=== PATIENT | male | born 1970 | race Caucasian/White ===

== ENCOUNTER 2018-11-12 10:00 | Inpatient (IN) | payer MEDICAID ==
[~2018-11-12] VITALS: Ht 185.4 cm; Wt 119.0 kg
[~2018-11-12 10:00] MED LIST: GABA600T13 PO; LANTUS SUBCUT
[2018-11-12] MEDS ORDERED: normal saline 1000ML IV soln IVB ONE (12:10)
[2018-11-12] MEDS ORDERED: HYDROcodone/acetaminophen 10/325mg tab PO ONE (13:05)
[2018-11-12 13:18] LABS: BASOPHILS % (AUTO) 0.5 % (0-1); EOSINOPHILS # (AUTO) 0.3 X10'3 (0-0.9); EOSINOPHILS % (AUTO) 3.2 % (0-6); HEMATOCRIT 31.2 % (42.0-52.0); HEMOGLOBIN 10.6 g/dl (14.0-17.9); LYMPHOCYTES # (AUTO) 1.8 X10'3 (1.1-4.8); LYMPHOCYTES % (AUTO) 20.8 % (21-51); MEAN CORPUSCULAR HEMOGLOBIN 30.9 PG (27.0-31.0); MEAN CORPUSCULAR HGB CONC 33.8 g/dL (33.0-36.5); MEAN CORPUSCULAR VOLUME 91.3 FL (78-98); MEAN PLATELET VOLUME 8.1 FL (7.4-10.4); MONOCYTES # (AUTO) 0.5 X10'3 (0-0.9); MONOCYTES % (AUTO) 5.4 % (2-12); NEUTROPHILS # (AUTO) 6.1 X10'3 (1.8-7.7); NEUTROPHILS % (AUTO) 70.1 % (42-75); PLATELET COUNT 342 X10'3 (140-440); RED BLOOD COUNT 3.42 X10'6 (4.70-6.10); RED CELL DISTRIBUTION WIDTH 15.8 % (11.5-14.5); WHITE BLOOD COUNT 8.7 X10'3 (4.5-11.0)
[2018-11-12 13:32] LABS: ALANINE AMINOTRANSFERASE 18 U/L (12-78); ALBUMIN 2.6 G/DL (3.4-5.0); ALBUMIN/GLOBULIN RATIO 0.5 (1.1-1.5); ALKALINE PHOSPHATASE 109 IU/L (46-116); ANION GAP 7 (8-16); ASPARTATE AMINO TRANSFERASE 13 U/L (10-37); BILIRUBIN,TOTAL 0.3 MG/DL (0.1-1.0); BLOOD UREA NITROGEN 22 MG/DL (7-18); BUN/CREATININE RATIO 18.3 (5.4-32.0); CALCIUM 8.4 MG/DL (8.5-10.1); CHLORIDE 97 MMOL/L (99-107); GLUCOSE 359 MG/DL (70-104); POTASSIUM 4.8 MMOL/L (3.5-5.1); SODIUM 131 MMOL/L (135-145); TOTAL CARBON DIOXIDE 27.2 MMOL/L (24-32); TOTAL PROTEIN 7.4 G/DL (6.4-8.2); eGFR 65 ML/MIN
[2018-11-12 13:36] LABS: CLARITY,URINE CLEAR (Clear); COLOR,URINE YELLOW (Yellow); GLUCOSE, URINE >=1000 mg/dl (Neg); KETONES,URINE NEGATIVE (Neg); LEUKOCYTE ESTERASE ,URINE NEGATIVE (Neg); NITRITES, URINE NEGATIVE (Neg); OCCULT BLOOD,URINE TRACE-LYSED (Neg); PROTEIN,URINE 100 mg/dl (Neg); UROBILINOGEN,URINE 0.2 E.U/dL (0.2-1.0)
[2018-11-12 13:41] LABS: UA COLLECTION TYPE CLN CATCH MIDSTREAM
[2018-11-12 13:43] LABS: HYALINE CASTS 0-3 /LPF (NEGATIVE); MUCUS STRANDS FEW /LPF (Neg); SQUAMOUS EPITHELIAL CELL,UR FEW /LPF (FEW)
[2018-11-12 13:44] LABS: BACTERIA,URINE FEW /HPF (Neg); WBC,URINE 0-4 /HPF (0-4)
[2018-11-12 13:45] LABS: SPERM FEW /HPF (NEGATIVE)
[2018-11-12 13:50] LABS: URINE AMPHETAMINE SCREEN NEGATIVE (Neg); URINE BARBITUATE SCREEN NEGATIVE (Neg); URINE BENZODIAZEPINES SCREEN NEGATIVE (Neg); URINE CANNABINOID SCREEN POSITIVE (Neg); URINE COCAINE SCREEN NEGATIVE (Neg); URINE METHADONE SCREEN NEGATIVE (Neg); URINE OPIATE SCREEN NEGATIVE (Neg); URINE PHENCYCLIDINE SCREEN NEGATIVE (Neg)
[2018-11-12] MEDS ORDERED: vancomycin inj 1,250 MG in normal saline 250ml IV soln 250 ML IV ONE (14:20)
[2018-11-12] MEDS ORDERED: CITA20TA2 PO (15:40)
[2018-11-12] MEDS ORDERED: LOSA25TA41 PO (15:40)
[2018-11-12] MEDS ORDERED: INSU100C10 SQ (15:40)
[2018-11-12] MEDS ORDERED: LURA20TA PO (15:40)
[2018-11-12] MEDS ORDERED: CARV6.252 PO (15:40)
[2018-11-12] MEDS ORDERED: OXYC-150 PO (15:40)
[2018-11-12] MEDS ORDERED: piperacillin/tazo 3.375gm/50ml 50 ML IV SCH (16:00)
[2018-11-12] MEDS ORDERED: potassium Cl 40MEQ/NS 500ml 500 ML IV PRN ×2 (16:25)
[2018-11-12] MEDS ORDERED: magnesium 4gm in 100ml NS 100 ML IV PRN (16:25)
[2018-11-12] MEDS ORDERED: acetaminophen 325mg tablet PO PRN ×2 (16:25)
[2018-11-12] MEDS ORDERED: glucagon, human recombinant 1mg kit SUBCUT PRN (16:25)
[2018-11-12] MEDS ORDERED: dextrose 50%-water 50ml dispensing syringe IV PRN ×2 (16:25)
[2018-11-12] MEDS ORDERED: mag hydrox/Alum hydrox/simeth 30ml oral suspension PO PRN (16:25)
[2018-11-12] MEDS ORDERED: ondansetron/PF 4mg/2ml inj IV PRN (16:25)
[2018-11-12] MEDS ORDERED: potassium Cl 20 mEq SR tablet PO PRN ×2 (16:25)
[2018-11-12] MEDS ORDERED: magnesium 2GM in 50ml NS 50 ML IV PRN (16:25)
[2018-11-12] MEDS ORDERED: magnesium Cl slow-release 64mg tablet PO PRN (16:25)
[2018-11-12] MEDS ORDERED: MESSAGE TO PHARMACY PO ONE (16:25)
[2018-11-12] MEDS ORDERED: dextrose ORAL solution 15 GM/59 ML bottle PO PRN (16:25)
[2018-11-12] MEDS ORDERED: magnesium hydroxide 30ml (MOM) UD suspension PO PRN (16:25)
[2018-11-12 17:00] LABS: HEMOGLOBIN A1C 10.7 % (4.5-6.2)
[2018-11-12] MEDS: carvedilol 6.25mg tablet PO SCH (19:23)
[2018-11-12] MEDS: insulin Lispro (HumaLOG) vial - multi-dose SQ SCH ×2 (19:26→21:17)
[2018-11-12] MEDS: normal saline 1000ml 1,000 ML IV SCH (20:55)
[2018-11-12] MEDS: gabapentin 300mg capsule PO SCH (21:04)
[2018-11-12] MEDS: losartan 25mg tablet PO SCH (21:05)
[2018-11-12] MEDS: HYDROcodone/acetaminophen 5mg/325mg tablet PO PRN (21:05)
[2018-11-12] MEDS: heparin, porcine 5000 units/ml vial SQ SCH (21:06)
[2018-11-12] MEDS: insulin glargine (Lantus) pen - multi-dose SQ SCH (21:17)
[2018-11-12 23:00] VITALS: BP 136/94
[2018-11-13] VITALS: BP 140/96
[2018-11-13] MEDS: normal saline 1000ml 1,000 ML IV SCH ×3 (02:23→23:09)
[2018-11-13] MEDS: HYDROcodone/acetaminophen 5mg/325mg tablet PO PRN ×5 (04:06→23:08)
[2018-11-13 05:50] LABS: BASOPHILS # (AUTO) 0.1 X10'3 (0-0.2); BASOPHILS % (AUTO) 1.3 % (0-1); EOSINOPHILS # (AUTO) 0.5 X10'3 (0-0.9); EOSINOPHILS % (AUTO) 8.2 % (0-6); HEMATOCRIT 29.7 % (42.0-52.0); LYMPHOCYTES % (AUTO) 35.5 % (21-51); MEAN CORPUSCULAR HEMOGLOBIN 30.9 PG (27.0-31.0); MEAN CORPUSCULAR HGB CONC 33.7 g/dL (33.0-36.5); MEAN CORPUSCULAR VOLUME 91.4 FL (78-98); MEAN PLATELET VOLUME 8.3 FL (7.4-10.4); MONOCYTES # (AUTO) 0.3 X10'3 (0-0.9); NEUTROPHILS # (AUTO) 2.7 X10'3 (1.8-7.7); PLATELET COUNT 287 X10'3 (140-440); RED BLOOD COUNT 3.25 X10'6 (4.70-6.10); RED CELL DISTRIBUTION WIDTH 15.3 % (11.5-14.5); WHITE BLOOD COUNT 5.6 X10'3 (4.5-11.0)
--- NOTE | 2018-11-13 06:00 | NUR ---
Problems reprioritized. Patient report given, questions answered & plan of care reviewed with Meenakshi VENTURA. Addendum: 11/13/18 at 0638 by Lucila Alvarez RN Amended: Links added.
--- NOTE | 2018-11-13 06:10 | NUR ---
Patient in room [facility]. I have received report from AUDREY Gaytan and had the opportunity to ask questions and assume patient care. Patient alert, oriented and in no apparent distress on room air. Patient sitting up in bed on laptop. Call light and items of frequent use in reach of patient
[2018-11-13 06:13] LABS: ALANINE AMINOTRANSFERASE 17 U/L (12-78); ALBUMIN 2.2 G/DL (3.4-5.0); ALBUMIN/GLOBULIN RATIO 0.5 (1.1-1.5); ALKALINE PHOSPHATASE 83 IU/L (46-116); ANION GAP 7 (8-16); ASPARTATE AMINO TRANSFERASE 18 U/L (10-37); BILIRUBIN,TOTAL 0.2 MG/DL (0.1-1.0); BLOOD UREA NITROGEN 14 MG/DL (7-18); CALCIUM 8.2 MG/DL (8.5-10.1); CHLORIDE 99 MMOL/L (99-107); GLUCOSE 323 MG/DL (70-104); MAGNESIUM 1.7 MG/DL (1.5-2.4); SODIUM 133 MMOL/L (135-145); TOTAL CARBON DIOXIDE 26.7 MMOL/L (24-32); TOTAL PROTEIN 6.5 G/DL (6.4-8.2); eGFR 80 ML/MIN
[2018-11-13 06:14] LABS: POTASSIUM 4.5 MMOL/L (3.5-5.1)
[2018-11-13 07:00] VITALS: BP 171/115
[2018-11-13] MEDS: K and/or MAG REPLACEMENT MC SCH (07:10)
[2018-11-13] MEDS: citalopram 20mg tablet PO SCH (07:35)
[2018-11-13] MEDS: carvedilol 6.25mg tablet PO SCH ×2 (07:36→21:46)
[2018-11-13] MEDS: gabapentin 300mg capsule PO SCH ×3 (07:37→21:37)
[2018-11-13] MEDS: heparin, porcine 5000 units/ml vial SQ SCH ×2 (07:37→21:38)
[2018-11-13] MEDS: lurasidone 20mg tablet PO SCH (07:43)
[2018-11-13] MEDS: insulin Lispro (HumaLOG) vial - multi-dose SQ SCH ×3 (09:04→19:20)
[2018-11-13 11:00] VITALS: BP 159/97
--- NOTE | 2018-11-13 12:21 | NUR ---
Patient SL for MRI. Patient taken to MRI via wheelchair with x1 staff. Tele monitor removed and placed bedside. Tele chambers notified.
[2018-11-13] MEDS ORDERED: gadopentetate dimeglumine 7.5 MMOL/15 ML syringe ONE ×2 (12:32→12:33)
--- NOTE | 2018-11-13 13:15 | NUR ---
Patient returned from MRI via wheelchair with x1 staff. Patient alert, oriented and in no apparent distress at this time. IV fluids resumed. Tele monitor reconnected to patient. Will assess blood sugar before giving patient lunch tray.
--- NOTE | 2018-11-13 16:35 | NUR ---
DM/wound consult: Patient's A1C is 10.7 with h/o type 2 DM; patient had recent tarsometatarsal amputation on right foot on 10/27/18. Per H&P patient had stopped attending wound care and was "fired" d/t not making his appointments. He has a good appetite, eating 100% of carb controlled diet. Patient needs written DM education handout with verbal review and written high protein education handout with verbal review r/t wound heal. He was seen at bedside but was snoring heavily and would not wake from his sleep even after his name was called three times. Will visit tomorrow for his education. Needs education of effects of high blood sugars and wound healing capabilities Recommend: 1. Continue carb controlled diet 2. Monitor need for additional protein 3. Weight per rx Addendum: 11/13/18 at [address] Amended: Links added.
--- NOTE | 2018-11-13 18:46 | NUR ---
Problems reprioritized. Patient report given, questions answered & plan of care reviewed with AUDREY Gaytan.
[2018-11-13 19:00] VITALS: BP 148/97
[2018-11-13] MEDS: losartan 25mg tablet PO SCH (21:43)
[2018-11-13] MEDS: insulin glargine (Lantus) pen - multi-dose SQ SCH (21:54)
[2018-11-13] MEDS ORDERED: VANCOMYCIN LEVEL IV ONE (22:30)
--- NOTE | 2018-11-13 22:45 | NUR ---
Lab called Vanco trough 22.1. Delores stopped. pharmacy notified as they are adjusting the dose. Addendum: 11/14/18 at 0459 by Lucila Alvarez RN Amended: Links added.
[2018-11-14] VITALS: BP 155/105
[2018-11-14 01:20] VITALS: BP 148/91
[2018-11-14] MEDS: normal saline 1000ml 1,000 ML IV SCH ×2 (04:44→22:00)
[2018-11-14] MEDS: HYDROcodone/acetaminophen 5mg/325mg tablet PO PRN ×4 (04:44→19:40)
--- NOTE | 2018-11-14 06:43 | NUR ---
Patient in room [facility]. I have received report from AUDREY Gaytan and had the opportunity to ask questions and assume patient care. Patient resting comfortably at this time. Call light and items of frequent use in reach of patient.
[2018-11-14 07:11] LABS: BASOPHILS # (AUTO) 0.1 X10'3 (0-0.2); BASOPHILS % (AUTO) 1.1 % (0-1); EOSINOPHILS # (AUTO) 0.5 X10'3 (0-0.9); EOSINOPHILS % (AUTO) 8.2 % (0-6); HEMOGLOBIN 10.5 g/dl (14.0-17.9); LYMPHOCYTES # (AUTO) 1.9 X10'3 (1.1-4.8); LYMPHOCYTES % (AUTO) 31.9 % (21-51); MEAN CORPUSCULAR HEMOGLOBIN 30.5 PG (27.0-31.0); MEAN CORPUSCULAR HGB CONC 32.9 g/dL (33.0-36.5); MEAN CORPUSCULAR VOLUME 92.5 FL (78-98); MEAN PLATELET VOLUME 8.4 FL (7.4-10.4); MONOCYTES # (AUTO) 0.3 X10'3 (0-0.9); MONOCYTES % (AUTO) 4.2 % (2-12); NEUTROPHILS # (AUTO) 3.3 X10'3 (1.8-7.7); NEUTROPHILS % (AUTO) 54.6 % (42-75); PLATELET COUNT 320 X10'3 (140-440); RED BLOOD COUNT 3.46 X10'6 (4.70-6.10); RED CELL DISTRIBUTION WIDTH 15.5 % (11.5-14.5)
[2018-11-14 07:30] LABS: ALANINE AMINOTRANSFERASE 16 U/L (12-78); ALBUMIN 2.4 G/DL (3.4-5.0); ALBUMIN/GLOBULIN RATIO 0.5 (1.1-1.5); ALKALINE PHOSPHATASE 82 IU/L (46-116); ANION GAP 8 (8-16); ASPARTATE AMINO TRANSFERASE 13 U/L (10-37); BILIRUBIN,TOTAL 0.2 MG/DL (0.1-1.0); BLOOD UREA NITROGEN 10 MG/DL (7-18); BUN/CREATININE RATIO 12.7 (5.4-32.0); CALCIUM 8.6 MG/DL (8.5-10.1); CHLORIDE 99 MMOL/L (99-107); CREATININE 0.79 MG/DL (0.60-1.10); GLUCOSE 248 MG/DL (70-104); MAGNESIUM 1.8 MG/DL (1.5-2.4); POTASSIUM 4.3 MMOL/L (3.5-5.1); SODIUM 134 MMOL/L (135-145); TOTAL CARBON DIOXIDE 26.9 MMOL/L (24-32); TOTAL PROTEIN 6.9 G/DL (6.4-8.2); eGFR > 90 ML/MIN
[2018-11-14 07:47] VITALS: BP 144/99
[2018-11-14] MEDS: K and/or MAG REPLACEMENT MC SCH (08:00)
[2018-11-14] MEDS: carvedilol 6.25mg tablet PO SCH ×2 (09:37→20:01)
[2018-11-14] MEDS: citalopram 20mg tablet PO SCH (09:37)
[2018-11-14] MEDS: lurasidone 20mg tablet PO SCH (09:38)
[2018-11-14] MEDS: HYDROchlorothiazide 12.5mg capsule PO SCH (09:38)
[2018-11-14] MEDS: gabapentin 300mg capsule PO SCH ×3 (09:39→20:31)
[2018-11-14] MEDS: heparin, porcine 5000 units/ml vial SQ SCH ×2 (09:39→20:01)
[2018-11-14] MEDS: nicotine 14mg patch - 24hr TD SCH (09:40)
[2018-11-14] MEDS: Dakins solution (1/4 strength) 473ml solution TP SCH (09:41)
[2018-11-14] MEDS: insulin Lispro (HumaLOG) vial - multi-dose SQ SCH ×3 (09:44→18:53)
[2018-11-14] MEDS: vancomycin inj 1,250 MG in normal saline 250ml IV soln 250 ML IV SCH ×3 (09:47→23:57)
[2018-11-14 11:39] VITALS: BP_SYST 160; BP_SYST 164; BP_DIAS 108; BP_DIAS 116
--- NOTE | 2018-11-14 14:54 | NUR ---
Wound care provided to right foot. Dakins solution applied and a wet-dry dressing was provided. Patient tolerated well and stated pain at a 5/10 and tolerated well. Wound had purulent drainage at time of dressing change. Will continue to monitor patient.
--- NOTE | 2018-11-14 15:06 | NUR ---
DM/wound consult:Patient's A1C is 10.7 with h/o type 2 DM; patient had recent tarsometatarsal amputation on right foot on 10/27/18. Met pt at bedside offered written and verbal DM education and high protein education. Pt states he has all the education and pamphlets he needs, but listened to high protein education. Pt states he takes meds on a regular basis and does his best to follow a CHO control diet but finds it difficult w/ 4 children who need to eat first. Pt states he would like double protein discussed w/ dietary. LBM 11/13 Will continue to monitor. Recommend: 1. Continue carb controlled diet 2. Double meat TID 3. Weight per rx Addendum: 11/14/18 at [address] Amended: Links added. Addendum: 11/14/18 at [address] I have reviewed and agree with note by Die Press Operator. Rebecca Bustos, RD
[2018-11-14] MEDS: dextrose ORAL solution 15 GM/59 ML bottle PO PRN ×3 (15:42→16:13)
--- NOTE | 2018-11-14 16:45 | NUR ---
1536 Patient asked to have his blood sugar checked because he was feeling shaky and unwell. Patient was assessed, he was shaking and diaphoretic. Sugar was 46 on right hand and 38 on left hand. Patient was given 30 Gm of oral glucose shot. Sugar retaken at 1556 and was 39. Another 30 Gm of oral glucose given as well as some juice. At 1613 sugar was 45 another 30 Gm of oral glucose given. Charge nurse, Myla was notified and suggested just giving the dextrose 50 mL IV. dextrose 50 mL given and sugar rechecked at 1632 and it was 198. Patient was dropped from a level 4 to a level 2. Will continue to monitor patient.
--- NOTE | 2018-11-14 18:30 | NUR ---
Problems reprioritized. Patient report given, questions answered & plan of care reviewed with AUDREY Heck. Patient sitting up in bed and just finished dinner. Patient alert, oriented and in no apparent distress at this time. Patient states "feeling better". Call light and items of frequent use in reach of patient.
--- NOTE | 2018-11-14 18:31 | NUR ---
Patient in room [facility]. I have received report from SUSAN VENTURA and had the opportunity to ask questions and assume patient care.
[2018-11-14 19:00] VITALS: BP_SYST 176; BP_SYST 190; BP_DIAS 115; BP_DIAS 119
--- NOTE | 2018-11-14 19:30 | NUR ---
LT. ARM = OD=518/119, RT. ARM ZY=075/115, NOTIFIED, NEW ORDER RECEIVED.
[2018-11-14] MEDS ORDERED: cloNIDine 0.1 mg tablet PO PRN (19:35)
[2018-11-14] MEDS ORDERED: amLODIPine 5mg tablet PO ONE (19:35)
[2018-11-14] MEDS: losartan 25mg tablet PO SCH (20:00)
[2018-11-14] MEDS: insulin glargine (Lantus) pen - multi-dose SQ SCH (21:50)
[2018-11-14] MEDS: morphine 4 MG/ML inj SYRINge IV PRN (21:57)
[2018-11-14] MEDS ORDERED: hydrALAZINE 25 MG tablet PO ONE (22:40)
--- NOTE | 2018-11-14 22:40 | NUR ---
BPRT. IZF=636/100, LT. BCB=744/111, DR. MAGAÑA NOTIFIED, NEW ORDER RECEIVED.
[2018-11-15] VITALS: BP 154/98
[2018-11-15] MEDS: normal saline 1000ml 1,000 ML IV SCH ×2 (04:23→12:59)
--- NOTE | 2018-11-15 06:28 | NUR ---
Problems reprioritized. Patient report given, questions answered & plan of care reviewed with SUSAN VENTURA.
[2018-11-15] MEDS ORDERED: VANCOMYCIN LEVEL IV NR (07:30)
[2018-11-15 07:35] VITALS: BP 143/100
[2018-11-15] MEDS: HYDROcodone/acetaminophen 5mg/325mg tablet PO PRN ×4 (07:38→22:46)
[2018-11-15] MEDS: K and/or MAG REPLACEMENT MC SCH (07:41)
[2018-11-15] MEDS: carvedilol 6.25mg tablet PO SCH ×2 (07:42→19:44)
[2018-11-15] MEDS: citalopram 20mg tablet PO SCH (07:42)
[2018-11-15] MEDS: vancomycin inj 1,250 MG in normal saline 250ml IV soln 250 ML IV SCH (07:42)
[2018-11-15] MEDS: HYDROchlorothiazide 12.5mg capsule PO SCH (07:43)
[2018-11-15] MEDS: gabapentin 300mg capsule PO SCH ×3 (07:43→20:57)
[2018-11-15] MEDS: lurasidone 20mg tablet PO SCH (07:43)
[2018-11-15] MEDS: heparin, porcine 5000 units/ml vial SQ SCH ×2 (07:44→19:44)
[2018-11-15] MEDS: nicotine 14mg patch - 24hr TD SCH (07:45)
[2018-11-15] MEDS: Dakins solution (1/4 strength) 473ml solution TP SCH (07:55)
[2018-11-15] MEDS ORDERED: amLODIPine 5mg tablet PO SCH (08:00)
[2018-11-15 08:08] LABS: BASOPHILS # (AUTO) 0.1 X10'3 (0-0.2); BASOPHILS % (AUTO) 1.2 % (0-1); EOSINOPHILS # (AUTO) 0.5 X10'3 (0-0.9); EOSINOPHILS % (AUTO) 7.9 % (0-6); HEMATOCRIT 32.9 % (42.0-52.0); LYMPHOCYTES # (AUTO) 1.6 X10'3 (1.1-4.8); LYMPHOCYTES % (AUTO) 25.1 % (21-51); MEAN CORPUSCULAR HEMOGLOBIN 31.1 PG (27.0-31.0); MEAN CORPUSCULAR HGB CONC 33.6 g/dL (33.0-36.5); MEAN CORPUSCULAR VOLUME 92.7 FL (78-98); MEAN PLATELET VOLUME 7.9 FL (7.4-10.4); MONOCYTES # (AUTO) 0.3 X10'3 (0-0.9); NEUTROPHILS # (AUTO) 3.9 X10'3 (1.8-7.7); NEUTROPHILS % (AUTO) 60.8 % (42-75); PLATELET COUNT 308 X10'3 (140-440); RED BLOOD COUNT 3.55 X10'6 (4.70-6.10); RED CELL DISTRIBUTION WIDTH 15.7 % (11.5-14.5); WHITE BLOOD COUNT 6.4 X10'3 (4.5-11.0)
[2018-11-15 08:23] LABS: ALANINE AMINOTRANSFERASE 13 U/L (12-78); ALBUMIN 2.4 G/DL (3.4-5.0); ALBUMIN/GLOBULIN RATIO 0.5 (1.1-1.5); ALKALINE PHOSPHATASE 78 IU/L (46-116); ANION GAP 7 (8-16); ASPARTATE AMINO TRANSFERASE 12 U/L (10-37); BILIRUBIN,TOTAL 0.2 MG/DL (0.1-1.0); BLOOD UREA NITROGEN 8 MG/DL (7-18); BUN/CREATININE RATIO 9.2 (5.4-32.0); CALCIUM 8.3 MG/DL (8.5-10.1); CHLORIDE 100 MMOL/L (99-107); CREATININE 0.87 MG/DL (0.60-1.10); GLUCOSE 225 MG/DL (70-104); MAGNESIUM 1.5 MG/DL (1.5-2.4); POTASSIUM 4.1 MMOL/L (3.5-5.1); SODIUM 135 MMOL/L (135-145); TOTAL CARBON DIOXIDE 28.4 MMOL/L (24-32); TOTAL PROTEIN 6.8 G/DL (6.4-8.2); eGFR > 90 ML/MIN
[2018-11-15 08:25] LABS: VANCOMYCIN,TROUGH 21.1 UG/ML (6.0-14.0)
[2018-11-15] MEDS: insulin Lispro (HumaLOG) vial - multi-dose SQ SCH ×3 (09:43→18:53)
--- NOTE | 2018-11-15 10:00 | NUR ---
made aware of patient's blood pressure being elevated. Dr. Coto stated that she will adjust the blood pressure medications.
[2018-11-15 12:00] VITALS: BP 126/83
--- NOTE | 2018-11-15 13:00 | NUR ---
Patient dressing changed. Moderate purulent drainage noted. Patient tolerated well.
[2018-11-15] MEDS: vancomycin/NS 1 GM ADD-VANTAGE 250 ML X 1 DOSE IV SCH (17:17)
--- NOTE | 2018-11-15 18:00 | NUR ---
Patient in room [facility]. I have received report from Meenakshi VENTURA and had the opportunity to ask questions and assume patient care.
--- NOTE | 2018-11-15 18:15 | NUR ---
Problems reprioritized. Patient report given, questions answered & plan of care reviewed with AUDREY Chan. Patient sitting up eating dinner and watching the super bowl at this time. Patient alert, oriented and in no apparent distress at this time. Call light and items of frequent use in reach of patient.
[2018-11-15] MEDS: morphine 4 MG/ML inj SYRINge IV PRN (19:01)
[2018-11-15 20:00] VITALS: BP 168/112
[2018-11-15] MEDS: insulin glargine (Lantus) pen - multi-dose SQ SCH (21:06)
[2018-11-16] VITALS: BP 169/108
[2018-11-16] MEDS: vancomycin/NS 1 GM ADD-VANTAGE 250 ML X 1 DOSE IV SCH ×3 (00:26→16:22)
[2018-11-16] MEDS: morphine 4 MG/ML inj SYRINge IV PRN ×4 (00:27→19:33)
[2018-11-16] MEDS: HYDROcodone/acetaminophen 5mg/325mg tablet PO PRN ×3 (03:53→22:00)
[2018-11-16 05:08] LABS: BASOPHILS % (AUTO) 0.7 % (0-1); EOSINOPHILS # (AUTO) 0.5 X10'3 (0-0.9); EOSINOPHILS % (AUTO) 7.8 % (0-6); HEMATOCRIT 31.5 % (42.0-52.0); HEMOGLOBIN 10.6 g/dl (14.0-17.9); LYMPHOCYTES # (AUTO) 2.2 X10'3 (1.1-4.8); LYMPHOCYTES % (AUTO) 33.8 % (21-51); MEAN CORPUSCULAR HGB CONC 33.8 g/dL (33.0-36.5); MEAN CORPUSCULAR VOLUME 91.9 FL (78-98); MEAN PLATELET VOLUME 8.6 FL (7.4-10.4); MONOCYTES # (AUTO) 0.3 X10'3 (0-0.9); MONOCYTES % (AUTO) 4.5 % (2-12); NEUTROPHILS # (AUTO) 3.5 X10'3 (1.8-7.7); NEUTROPHILS % (AUTO) 53.2 % (42-75); PLATELET COUNT 301 X10'3 (140-440); RED BLOOD COUNT 3.43 X10'6 (4.70-6.10); RED CELL DISTRIBUTION WIDTH 15.2 % (11.5-14.5); WHITE BLOOD COUNT 6.6 X10'3 (4.5-11.0)
[2018-11-16 05:09] LABS: ALANINE AMINOTRANSFERASE 18 U/L (12-78); ALBUMIN 2.5 G/DL (3.4-5.0); ALBUMIN/GLOBULIN RATIO 0.6 (1.1-1.5); ALKALINE PHOSPHATASE 79 IU/L (46-116); ANION GAP 9 (8-16); ASPARTATE AMINO TRANSFERASE 17 U/L (10-37); BILIRUBIN,TOTAL 0.3 MG/DL (0.1-1.0); BLOOD UREA NITROGEN 11 MG/DL (7-18); BUN/CREATININE RATIO 12.9 (5.4-32.0); CALCIUM 8.4 MG/DL (8.5-10.1); CHLORIDE 100 MMOL/L (99-107); CREATININE 0.85 MG/DL (0.60-1.10); GLUCOSE 161 MG/DL (70-104); MAGNESIUM 1.6 MG/DL (1.5-2.4); POTASSIUM 3.7 MMOL/L (3.5-5.1); SODIUM 136 MMOL/L (135-145); TOTAL CARBON DIOXIDE 26.7 MMOL/L (24-32); TOTAL PROTEIN 6.8 G/DL (6.4-8.2); eGFR > 90 ML/MIN
[2018-11-16] MEDS: normal saline 1000ml 1,000 ML IV SCH ×2 (05:17→11:55)
--- NOTE | 2018-11-16 06:34 | NUR ---
Patient in room [facility]. I have received report from Rocio VENTURA and had the opportunity to ask questions and assume patient care. Addendum: 11/16/18 at 0634 by Zandra Simeon RN Amended: Links added.
--- NOTE | 2018-11-16 06:35 | NUR ---
Problems reprioritized. Patient report given, questions answered & plan of care reviewed with Zandra VENTURA.
[2018-11-16] MEDS: nicotine 14mg patch - 24hr TD SCH (07:30)
[2018-11-16] MEDS: lurasidone 20mg tablet PO SCH (07:30)
[2018-11-16] MEDS: HYDROchlorothiazide 12.5mg capsule PO SCH (07:31)
[2018-11-16] MEDS: amLODIPine 5mg tablet PO SCH (07:31)
[2018-11-16] MEDS: gabapentin 300mg capsule PO SCH ×3 (07:31→22:00)
[2018-11-16] MEDS: citalopram 20mg tablet PO SCH (07:31)
[2018-11-16] MEDS: carvedilol 6.25mg tablet PO SCH ×2 (07:31→19:33)
[2018-11-16] MEDS: lactobacillus rhamnosus 10,000 MMU CELLS/CAPSULE PO SCH ×2 (07:31→19:33)
[2018-11-16] MEDS: losartan 50mg tablet PO SCH (07:31)
[2018-11-16] MEDS: heparin, porcine 5000 units/ml vial SQ SCH ×2 (07:32→19:35)
[2018-11-16 07:54] VITALS: BP 164/110
[2018-11-16] MEDS: K and/or MAG REPLACEMENT MC SCH (08:00)
[2018-11-16] MEDS: insulin Lispro (HumaLOG) vial - multi-dose SQ SCH ×3 (08:20→19:21)
--- NOTE | 2018-11-16 08:36 | NUR ---
Concur with Physical Assessment charted by Candice GIRALDO
--- NOTE | 2018-11-16 09:32 | NUR ---
Pt. appears to be asleep. Will do dressing change later when pt. wakes up since he did not sleep last noc.
[2018-11-16 10:37] VITALS: BP 115/71
[2018-11-16] MEDS: Dakins solution (1/4 strength) 473ml solution TP SCH (11:59)
--- NOTE | 2018-11-16 13:06 | NUR ---
Dr. Abdullahi her to see pt. Pt. to go to OR tomorrow for revision TMA right foot.
[2018-11-16] MEDS ORDERED: VANCOMYCIN LEVEL IV NR (15:30)
--- NOTE | 2018-11-16 18:30 | NUR ---
Patient in room [facility]. I have received report from AUDREY De Paz and had the opportunity to ask questions and assume patient care.
[2018-11-16 19:00] VITALS: BP 168/107
[2018-11-16] MEDS: insulin glargine (Lantus) pen - multi-dose SQ SCH (22:10)
[2018-11-16 23:00] VITALS: BP 141/99
[2018-11-16] MEDS ORDERED: VANCOMYCIN LEVEL IV ONE (23:30)
[2018-11-17] VITALS (16 sets, daily range): BP systolic 104–153; BP diastolic 56–98
[2018-11-17] MEDS: vancomycin/NS 1 GM ADD-VANTAGE 250 ML X 1 DOSE IV SCH ×4 (00:17→23:47)
[2018-11-17] MEDS: morphine 4 MG/ML inj SYRINge IV PRN ×2 (00:26→12:00)
--- NOTE | 2018-11-17 01:00 | NUR ---
PCT assisted pt with pre-op shower; dallin wipes done 1-2 hrs later by PCT
[2018-11-17] MEDS: HYDROcodone/acetaminophen 5mg/325mg tablet PO PRN ×3 (03:33→21:16)
[2018-11-17 05:22] LABS: BASOPHILS # (AUTO) 0.1 X10'3 (0-0.2); EOSINOPHILS # (AUTO) 0.4 X10'3 (0-0.9); EOSINOPHILS % (AUTO) 6.5 % (0-6); HEMATOCRIT 30.7 % (42.0-52.0); HEMOGLOBIN 10.2 g/dl (14.0-17.9); LYMPHOCYTES # (AUTO) 1.9 X10'3 (1.1-4.8); LYMPHOCYTES % (AUTO) 28.2 % (21-51); MEAN CORPUSCULAR HEMOGLOBIN 30.9 PG (27.0-31.0); MEAN CORPUSCULAR HGB CONC 33.4 g/dL (33.0-36.5); MEAN CORPUSCULAR VOLUME 92.7 FL (78-98); MEAN PLATELET VOLUME 8.1 FL (7.4-10.4); MONOCYTES # (AUTO) 0.4 X10'3 (0-0.9); MONOCYTES % (AUTO) 5.8 % (2-12); NEUTROPHILS % (AUTO) 58.5 % (42-75); PLATELET COUNT 269 X10'3 (140-440); RED BLOOD COUNT 3.31 X10'6 (4.70-6.10); RED CELL DISTRIBUTION WIDTH 15.7 % (11.5-14.5); WHITE BLOOD COUNT 6.8 X10'3 (4.5-11.0)
[2018-11-17 05:31] LABS: PARTIAL THROMBOPLASTIN TIME 30 SECONDS (22-32); PROTHROMBIN TIME 9.7 SECONDS (9.0-12.0)
[2018-11-17 05:39] LABS: ALANINE AMINOTRANSFERASE 21 U/L (12-78); ALBUMIN 2.5 G/DL (3.4-5.0); ALBUMIN/GLOBULIN RATIO 0.6 (1.1-1.5); ALKALINE PHOSPHATASE 78 IU/L (46-116); ANION GAP 9 (8-16); ASPARTATE AMINO TRANSFERASE 22 U/L (10-37); BILIRUBIN,TOTAL 0.3 MG/DL (0.1-1.0); BLOOD UREA NITROGEN 15 MG/DL (7-18); BUN/CREATININE RATIO 15.3 (5.4-32.0); CALCIUM 8.7 MG/DL (8.5-10.1); CHLORIDE 100 MMOL/L (99-107); CREATININE 0.98 MG/DL (0.60-1.10); GLUCOSE 195 MG/DL (70-104); MAGNESIUM 1.6 MG/DL (1.5-2.4); SODIUM 136 MMOL/L (135-145); TOTAL CARBON DIOXIDE 27.3 MMOL/L (24-32); TOTAL PROTEIN 6.8 G/DL (6.4-8.2); eGFR 82 ML/MIN
--- NOTE | 2018-11-17 06:30 | NUR ---
report given to AUDREY Mei
[2018-11-17] MEDS: K and/or MAG REPLACEMENT MC SCH (07:22)
[2018-11-17] MEDS: amLODIPine 5mg tablet PO SCH (07:45)
[2018-11-17] MEDS: HYDROchlorothiazide 12.5mg capsule PO SCH (07:45)
[2018-11-17] MEDS: gabapentin 300mg capsule PO SCH ×3 (07:46→21:03)
[2018-11-17] MEDS: losartan 50mg tablet PO SCH (07:46)
[2018-11-17] MEDS: carvedilol 6.25mg tablet PO SCH ×2 (07:46→19:43)
[2018-11-17] MEDS: lactobacillus rhamnosus 10,000 MMU CELLS/CAPSULE PO SCH ×2 (07:46→19:43)
[2018-11-17] MEDS: citalopram 20mg tablet PO SCH (07:46)
[2018-11-17] MEDS: normal saline 1000ml 1,000 ML IV SCH ×2 (07:47→21:17)
[2018-11-17] MEDS: lurasidone 20mg tablet PO SCH (07:53)
[2018-11-17] MEDS: heparin, porcine 5000 units/ml vial SQ SCH ×2 (07:58→19:44)
[2018-11-17] MEDS: nicotine 14mg patch - 24hr TD SCH (07:59)
[2018-11-17] MEDS: Dakins solution (1/4 strength) 473ml solution TP SCH (08:00)
[2018-11-17] MEDS: insulin Lispro (HumaLOG) vial - multi-dose SQ SCH ×2 (08:29→18:52)
[2018-11-17] MEDS: CefTRIAXone 2gm/D5W 50ml 50 ML IV SCH (12:57)
[2018-11-17] MEDS ORDERED: midazolam 2 mg/2 ml injection ONE (13:57)
[2018-11-17] MEDS ORDERED: fentaNYL/PF 50MCG/1 ML 2ML syringe ONE (13:57)
[2018-11-17] MEDS ORDERED: propofol inj 20 ML IV ONE (13:59)
[2018-11-17] MEDS ORDERED: LIDOcaine 2% (20mg/ml) 5ml vial ONE (13:59)
[2018-11-17] MEDS ORDERED: ringers solution, lacted 1,000 ML IV SCH (14:03)
[2018-11-17] MEDS ORDERED: ondansetron/PF 4mg/2ml inj IV PRN (14:05)
[2018-11-17] MEDS ORDERED: labetalol 20mg/4ml (5mg/ml) syringe IV PRN (14:05)
[2018-11-17] MEDS ORDERED: hydrALAZINE 20mg/ml inj. IV PRN (14:05)
[2018-11-17] MEDS ORDERED: morphine 4 MG/ML inj SYRINge IV PRN ×2 (14:05)
[2018-11-17] MEDS ORDERED: fentaNYL/PF 50MCG/1 ML 2ML syringe IV PRN ×2 (14:05)
[2018-11-17] MEDS ORDERED: sevoflurane 250ml liquid IH ONE (14:16)
[2018-11-17] MEDS: metroNIDAZOLE 500mg tablet PO SCH ×2 (16:00→23:46)
--- NOTE | 2018-11-17 16:10 | NUR ---
Received from OR via BED , accompanied by Anesthesiologist and report given by Anesthesiolgist. PATIENT WAKING UP, DENIES PAIN, V/S WNL, NEUROVASCULAR CHECKS INTACT, 20G PIV LUE , DRESSING TO RIGHT FOOT CDI W/ WOUND VAC AT 125 CONTINOUS SUCTION AND W/ SCD ON.
--- NOTE | 2018-11-17 17:00 | NUR ---
PATIENT A&0X4, DENIES PAIN, V/S WNL, NEUROVASCULAR CHECKS INTACT, 20G PIV LUE , DRESSING TO RIGHT FOOT CDI W/ WOUND VAC AT 125 CONTINOUS SUCTION AND W/ SCD ON. PATIENT TAKEN TO SURGICAL WITH ALL BELONGINGS AND HOOKED UP TO MONITORS IN ROOM AND REPORT GIVEN TO PETAR VENTURA WHO HAS TAKEN OVER PATIENT CARE. TELE 15 ON .
--- NOTE | 2018-11-17 18:30 | NUR ---
Patient in room [facility]. I have received report from AUDREY Mei and had the opportunity to ask questions and assume patient care.
--- NOTE | 2018-11-17 18:42 | NUR ---
pt returned from surgery at 1630. Wound Vac in place with good seal. Post op vital signs started.
[2018-11-17] MEDS: morphine 2 MG/ML inj. syringe IV PRN (18:53)
--- NOTE | 2018-11-17 21:04 | NUR ---
Patient is refusing to wear a fall risk band.
[2018-11-17] MEDS: insulin glargine (Lantus) pen - multi-dose SQ SCH (21:14)
[2018-11-18] VITALS: BP 128/84
[2018-11-18] MEDS: morphine 2 MG/ML inj. syringe IV PRN ×4 (05:20→23:28)
--- NOTE | 2018-11-18 06:12 | NUR ---
Problems reprioritized. Patient report given, questions answered & plan of care reviewed with AUDREY Ray.
[2018-11-18] MEDS: CefTRIAXone 2gm/D5W 50ml 50 ML IV SCH (07:28)
[2018-11-18] MEDS: carvedilol 6.25mg tablet PO SCH ×2 (07:32→21:12)
[2018-11-18] MEDS: lactobacillus rhamnosus 10,000 MMU CELLS/CAPSULE PO SCH ×2 (07:32→21:12)
[2018-11-18] MEDS: metroNIDAZOLE 500mg tablet PO SCH ×3 (07:32→23:27)
[2018-11-18] MEDS: amLODIPine 5mg tablet PO SCH (07:32)
[2018-11-18] MEDS: gabapentin 300mg capsule PO SCH ×3 (07:32→21:12)
[2018-11-18] MEDS: citalopram 20mg tablet PO SCH (07:32)
[2018-11-18] MEDS: HYDROchlorothiazide 12.5mg capsule PO SCH (07:32)
[2018-11-18] MEDS: heparin, porcine 5000 units/ml vial SQ SCH ×2 (07:33→21:12)
[2018-11-18] MEDS: nicotine 14mg patch - 24hr TD SCH (07:34)
[2018-11-18] MEDS: lurasidone 20mg tablet PO SCH (07:34)
[2018-11-18] MEDS: K and/or MAG REPLACEMENT MC SCH (07:36)
[2018-11-18] MEDS: Dakins solution (1/4 strength) 473ml solution TP SCH (07:39)
[2018-11-18] MEDS: losartan 50mg tablet PO SCH (07:58)
[2018-11-18 08:00] VITALS: BP 114/73
[2018-11-18] MEDS: HYDROcodone/acetaminophen 5mg/325mg tablet PO PRN ×3 (08:56→21:13)
[2018-11-18] MEDS: vancomycin/NS 1 GM ADD-VANTAGE 250 ML X 1 DOSE IV SCH ×3 (08:58→23:27)
[2018-11-18] MEDS: normal saline 1000ml 1,000 ML IV SCH ×2 (10:44→23:57)
[2018-11-18 10:57] VITALS: BP 101/68
--- NOTE | 2018-11-18 14:14 | NUR ---
II 11/23 DMdone^Prodone Reassessment:Pt previously eating 100% w/ no PO intake on the . Pt went into surgery on the . No new chart notes. Attempted visit w/ pt, pt was on phone and requested I come back. Will continue to follow. [facility] 11/17 Recommend: 1. Continue carb controlled diet 2. Double meat TID 3. Weight per rx Addendum: 11/18/18 at [address] Amended: Links added. Addendum: 11/19/18 at [address] SONYA Gonzales
[2018-11-18] MEDS: insulin Lispro (HumaLOG) vial - multi-dose SQ SCH ×2 (14:18→19:07)
--- NOTE | 2018-11-18 18:33 | NUR ---
Problems reprioritized. Patient report given, questions answered & plan of care reviewed with Kayli VENTURA.
--- NOTE | 2018-11-18 18:39 | NUR ---
Wound Vac leaking at approx. 1530. Pt. on side of bed went feet on ground. Wound vac drsg. reenforced with tegaderm, and wrapped in BERYL bandage to help wound vac reabsorb pooled blood in bandage. Pt. educated to elevate extremity with poor feedback. Will cont. to monitor on my shift.
[2018-11-18 20:00] VITALS: BP 100/66
[2018-11-18] MEDS: insulin glargine (Lantus) pen - multi-dose SQ SCH (21:00)
--- NOTE | 2018-11-18 22:37 | NUR ---
Patient in room [facility]. I have received report from AUDREY Ray and had the opportunity to ask questions and assume patient care. Addendum: 11/18/18 at 2238 by Kayli Ricks RN Amended: Links added.
--- NOTE | 2018-11-18 22:40 | NUR ---
sandwich, yogurt, milk given. Addendum: 11/18/18 at 2243 by Kayli Ricks RN Amended: Links added.
--- NOTE | 2018-11-18 22:46 | NUR ---
checked pts r foot pulse with doppler with good flow. Addendum: 11/18/18 at 2247 by Kayli Ricks RN Amended: Links added.
[2018-11-19] VITALS: BP 118/77
[2018-11-19] MEDS: HYDROcodone/acetaminophen 5mg/325mg tablet PO PRN ×3 (02:23→23:04)
--- NOTE | 2018-11-19 06:29 | NUR ---
Problems reprioritized. Patient report given, questions answered & plan of care reviewed with AUDREY Flores. Addendum: 11/19/18 at 0629 by Kayli Ricks RN Amended: Links added.
--- NOTE | 2018-11-19 06:38 | NUR ---
Patient in room [facility] 351. I have received report from linette sue rn and had the opportunity to ask questions and assume patient care. Addendum: 11/19/18 at 0639 by Perlita Cruz RN disregard this note
--- NOTE | 2018-11-19 06:39 | NUR ---
Patient in room [facility] 351. I have received report from kosta lawson and had the opportunity to ask questions and assume patient care.
[2018-11-19 07:00] VITALS: BP 114/76
[2018-11-19] MEDS: Dakins solution (1/4 strength) 473ml solution TP SCH (08:00)
[2018-11-19] MEDS: K and/or MAG REPLACEMENT MC SCH (08:00)
[2018-11-19] MEDS: CefTRIAXone 2gm/D5W 50ml 50 ML IV SCH (08:47)
[2018-11-19] MEDS: gabapentin 300mg capsule PO SCH ×3 (08:47→19:48)
[2018-11-19] MEDS: lurasidone 20mg tablet PO SCH (08:47)
[2018-11-19] MEDS: lactobacillus rhamnosus 10,000 MMU CELLS/CAPSULE PO SCH ×2 (08:47→19:48)
[2018-11-19] MEDS: losartan 50mg tablet PO SCH (08:47)
[2018-11-19] MEDS: metroNIDAZOLE 500mg tablet PO SCH ×2 (08:47→15:17)
[2018-11-19] MEDS: citalopram 20mg tablet PO SCH (08:47)
[2018-11-19] MEDS: amLODIPine 5mg tablet PO SCH (08:47)
[2018-11-19] MEDS: HYDROchlorothiazide 12.5mg capsule PO SCH (08:47)
[2018-11-19] MEDS: carvedilol 6.25mg tablet PO SCH ×2 (08:47→19:48)
[2018-11-19] MEDS: nicotine 14mg patch - 24hr TD SCH (08:48)
[2018-11-19] MEDS: morphine 2 MG/ML inj. syringe IV PRN ×3 (08:48→19:49)
[2018-11-19] MEDS: heparin, porcine 5000 units/ml vial SQ SCH ×2 (08:49→19:49)
[2018-11-19] MEDS: insulin Lispro (HumaLOG) vial - multi-dose SQ SCH ×3 (10:57→19:35)
[2018-11-19 11:00] VITALS: BP 114/77
--- NOTE | 2018-11-19 18:30 | NUR ---
Patient in room [facility] 351. I have received report from BARBARA VENTURA and had the opportunity to ask questions and assume patient care.
[2018-11-19 20:00] VITALS: BP 139/85
[2018-11-19] MEDS: insulin glargine (Lantus) pen - multi-dose SQ SCH (21:00)
[2018-11-20] VITALS: BP 121/85
[2018-11-20] MEDS: metroNIDAZOLE 500mg tablet PO SCH ×4 (00:15→23:51)
[2018-11-20] MEDS: morphine 2 MG/ML inj. syringe IV PRN ×4 (00:16→19:31)
--- NOTE | 2018-11-20 06:19 | NUR ---
Problems reprioritized. Patient report given, questions answered & plan of care reviewed with BARBARA VENTURA.
[2018-11-20] MEDS: K and/or MAG REPLACEMENT MC SCH (08:00)
[2018-11-20] MEDS: Dakins solution (1/4 strength) 473ml solution TP SCH (08:00)
[2018-11-20] MEDS: lurasidone 20mg tablet PO SCH (08:49)
[2018-11-20] MEDS: losartan 50mg tablet PO SCH (08:49)
[2018-11-20] MEDS: lactobacillus rhamnosus 10,000 MMU CELLS/CAPSULE PO SCH ×2 (08:49→19:24)
[2018-11-20] MEDS: citalopram 20mg tablet PO SCH (08:49)
[2018-11-20] MEDS: HYDROchlorothiazide 12.5mg capsule PO SCH (08:50)
[2018-11-20] MEDS: CefTRIAXone 2gm/D5W 50ml 50 ML IV SCH (08:50)
[2018-11-20] MEDS: heparin, porcine 5000 units/ml vial SQ SCH ×2 (08:50→19:17)
[2018-11-20] MEDS: amLODIPine 5mg tablet PO SCH (08:50)
[2018-11-20] MEDS: gabapentin 300mg capsule PO SCH ×3 (08:50→22:20)
[2018-11-20] MEDS: carvedilol 6.25mg tablet PO SCH ×2 (08:50→19:24)
[2018-11-20] MEDS: nicotine 14mg patch - 24hr TD SCH (08:51)
[2018-11-20] MEDS: insulin Lispro (HumaLOG) vial - multi-dose SQ SCH ×3 (09:04→19:24)
[2018-11-20 11:57] VITALS: BP 121/79
--- NOTE | 2018-11-20 15:10 | NUR ---
WOUND VAC EDUCATION PROVIDED BY WOUND CARE 1. Patient instructed to call the Wound Center or their Home Health Agency immediately if: * They notice a change in the color or amount of the fluid in the canister. * Their wound looks more red than usual or has a foul smell. * The skin around their wound looks reddened or irritated. * The dressing feels loose or appears to be loose. * They experience any increase or changes in their pain. * The alarm will not turn off. 2. Patient instructed that they should not be disconnected from suction for more than 2 hours at a time. * If they are not able to get the suction back on, they need to remove the dressing and take all of the foam out of the wound. * Then moisten sterile gauze with normal saline and place on/in the wound. * Change the dressing once a day until arrangements have been made to replace the wound vac dressing. 3. Patient instructed to turn the wound vac machine OFF and call 911 or go to the ED immediately if their canister fills rapidly with blood. 4. If any of these occur while in the hospital tell a nurse immediately. Addendum: 11/20/18 at 1539 by Addie Curtis RN Amended: Links added.
--- NOTE | 2018-11-20 15:29 | NUR ---
RECOMMEND: 1. Daily bathing with no rinse skin cleanser. 2. Cream/Lotion to be applied to skin after bathing. 3. Turn patient Q 1-2 hrs and reposition with pillows 4.Wound VAC t right transmetatarsal amputation site. Settings 125mmHg, low, continuos. Routine dressing changes by Wound Care Addendum: 11/20/18 at 1539 by Addie Curtis RN Amended: Links added.
[2018-11-20] MEDS: HYDROcodone/acetaminophen 10/325mg tab PO PRN ×2 (17:21→22:22)
--- NOTE | 2018-11-20 18:15 | NUR ---
Problems reprioritized. Patient report given, questions answered & plan of care reviewed with MEDINA VENTURA.
--- NOTE | 2018-11-20 18:30 | NUR ---
Patient in room [facility] 351. I have received report from Sandra VENTURA and had the opportunity to ask questions and assume patient care. Patient finishing dinner, [place] intact with good seal. Will continue to monitor.
[2018-11-20 19:00] VITALS: BP 120/86
--- NOTE | 2018-11-20 19:20 | NUR ---
Patient refused insulin for level 4 but stated he would take level3 of 8 units due to BS 77. Will continue to monitor.
[2018-11-20] MEDS: insulin glargine (Lantus) pen - multi-dose SQ SCH (22:19)
[2018-11-21] VITALS: BP 130/83
[2018-11-21] MEDS: HYDROcodone/acetaminophen 10/325mg tab PO PRN ×5 (03:00→21:14)
--- NOTE | 2018-11-21 06:30 | NUR ---
Problems reprioritized. Patient report given, questions answered & plan of care reviewed with Sandra VENTURA. Patient resting but woke while marking [place]. Denies needs at this time.
[2018-11-21 07:00] VITALS: BP 139/91
--- NOTE | 2018-11-21 07:01 | NUR ---
Patient in room [facility]. I have received report from MEDINA VENTURA and had the opportunity to ask questions and assume patient care.
[2018-11-21] MEDS: Dakins solution (1/4 strength) 473ml solution TP SCH (08:00)
[2018-11-21] MEDS: K and/or MAG REPLACEMENT MC SCH (08:00)
[2018-11-21] MEDS: heparin, porcine 5000 units/ml vial SQ SCH ×2 (08:34→21:00)
[2018-11-21] MEDS: lactobacillus rhamnosus 10,000 MMU CELLS/CAPSULE PO SCH ×2 (08:34→21:00)
[2018-11-21] MEDS: gabapentin 300mg capsule PO SCH ×3 (08:34→21:00)
[2018-11-21] MEDS: metroNIDAZOLE 500mg tablet PO SCH ×3 (08:34→23:40)
[2018-11-21] MEDS: lurasidone 20mg tablet PO SCH (08:34)
[2018-11-21] MEDS: losartan 50mg tablet PO SCH (08:34)
[2018-11-21] MEDS: HYDROchlorothiazide 12.5mg capsule PO SCH (08:34)
[2018-11-21] MEDS: amLODIPine 5mg tablet PO SCH (08:34)
[2018-11-21] MEDS: carvedilol 6.25mg tablet PO SCH ×2 (08:34→21:00)
[2018-11-21] MEDS: citalopram 20mg tablet PO SCH (08:34)
[2018-11-21] MEDS: nicotine 14mg patch - 24hr TD SCH (08:35)
[2018-11-21] MEDS: CefTRIAXone 2gm/D5W 50ml 50 ML IV SCH (08:35)
[2018-11-21] MEDS: insulin Lispro (HumaLOG) vial - multi-dose SQ SCH ×3 (08:46→18:38)
[2018-11-21 12:27] VITALS: BP 101/71
--- NOTE | 2018-11-21 18:00 | NUR ---
Patient in room [facility]. I have received report from Sandra VENTURA and had the opportunity to ask questions and assume patient care. Patient finishing dinner, requested additional food which was ordered. Will continue to monitor.
--- NOTE | 2018-11-21 18:02 | NUR ---
Problems reprioritized. Patient report given, questions answered & plan of care reviewed with russ lawson.
[2018-11-21 19:00] VITALS: BP 113/75
[2018-11-21] MEDS: insulin glargine (Lantus) pen - multi-dose SQ SCH (21:06)
[2018-11-21] MEDS: morphine 2 MG/ML inj. syringe IV PRN (23:41)
[2018-11-22] VITALS: BP 121/76
[2018-11-22] MEDS: HYDROcodone/acetaminophen 10/325mg tab PO PRN ×5 (02:36→23:26)
--- NOTE | 2018-11-22 06:10 | NUR ---
Patient in room [facility] 351. I have received report from Vida VENTURA and had the opportunity to ask questions and assume patient care. SN following today
--- NOTE | 2018-11-22 06:39 | NUR ---
Problems reprioritized. Patient report given, questions answered & plan of care reviewed with Tosin RN. Patient resting on right side, lights off.
[2018-11-22] MEDS: K and/or MAG REPLACEMENT MC SCH (07:21)
[2018-11-22 07:31] VITALS: BP 122/84
[2018-11-22] MEDS: heparin, porcine 5000 units/ml vial SQ SCH ×2 (08:00→20:26)
[2018-11-22] MEDS: Dakins solution (1/4 strength) 473ml solution TP SCH (08:00)
[2018-11-22] MEDS: CefTRIAXone 2gm/D5W 50ml 50 ML IV SCH (09:27)
[2018-11-22] MEDS: insulin Lispro (HumaLOG) vial - multi-dose SQ SCH ×3 (09:40→20:25)
[2018-11-22] MEDS: citalopram 20mg tablet PO SCH (09:45)
[2018-11-22] MEDS: gabapentin 300mg capsule PO SCH ×3 (09:46→20:25)
[2018-11-22] MEDS: HYDROchlorothiazide 12.5mg capsule PO SCH (09:46)
[2018-11-22] MEDS: amLODIPine 5mg tablet PO SCH (09:46)
[2018-11-22] MEDS: lurasidone 20mg tablet PO SCH (09:46)
[2018-11-22] MEDS: metroNIDAZOLE 500mg tablet PO SCH ×3 (09:47→23:26)
[2018-11-22] MEDS: carvedilol 6.25mg tablet PO SCH ×2 (09:47→20:25)
[2018-11-22] MEDS: losartan 50mg tablet PO SCH (09:47)
[2018-11-22] MEDS: lactobacillus rhamnosus 10,000 MMU CELLS/CAPSULE PO SCH ×2 (09:47→20:26)
[2018-11-22] MEDS: nicotine 14mg patch - 24hr TD SCH (09:48)
[2018-11-22 12:11] VITALS: BP 99/67
--- NOTE | 2018-11-22 13:08 | NUR ---
Accucheck had already eaten his meals. will not increase his level in protocol. Pt remains at level 4. Addendum: 11/22/18 at 1310 by Imelda Lee STUDENT STYolandaNU Amended: Links added.
--- NOTE | 2018-11-22 14:11 | NUR ---
sent message to pharmacy to send humalog, not enough to cover lunch
[2018-11-22 15:33] VITALS: BP 108/76
--- NOTE | 2018-11-22 16:20 | NUR ---
Covered patients 205 BG with 6u humalog. Humalog was brought up by pharmacy, nursing was unaware. Lunch meal was not covered.
--- NOTE | 2018-11-22 18:11 | NUR ---
Problems reprioritized. Patient report given, questions answered & plan of care reviewed with Mary Aguilar Medication Administration: For this medication-pass time frame, all medication were reviewed, dispensed, administered and documented per hospital policy by . Student documentation: I have reviewed and agree with all interventions, assessments performed and documented by Imelda NGUYỄN.
[2018-11-22 20:00] VITALS: BP 102/60
[2018-11-22] MEDS: insulin glargine (Lantus) pen - multi-dose SQ SCH (21:00)
--- NOTE | 2018-11-22 22:14 | NUR ---
Lantus non-administered as pt blood glucose was 80 after eating a second dinner tray. Pt will be NPO at midnight for surgical procedure. Will continue to monitor.
--- NOTE | 2018-11-22 22:30 | NUR ---
Patient c/o of feeling as if blood sugar is low. Blood sugar 60. Gave juice and jello, retested at 47. Gave two dex4's, provided with jackie crackers and milk. Retested at 90. Will continue to monitor.
[2018-11-22] MEDS: dextrose ORAL solution 15 GM/59 ML bottle PO PRN (22:58)
[2018-11-23] VITALS: BP 118/81
[2018-11-23] MEDS: HYDROcodone/acetaminophen 10/325mg tab PO PRN ×4 (03:44→23:01)
[2018-11-23 04:51] VITALS: BP_SYST 108; BP_SYST 118; BP_SYST 122; BP_SYST 125; BP_DIAS 78; BP_DIAS 80; BP_DIAS 81
[2018-11-23 05:25] LABS: BASOPHILS # (AUTO) 0.1 X10'3 (0-0.2); EOSINOPHILS # (AUTO) 0.3 X10'3 (0-0.9); EOSINOPHILS % (AUTO) 5.6 % (0-6); HEMATOCRIT 29.5 % (42.0-52.0); HEMOGLOBIN 9.8 g/dl (14.0-17.9); LYMPHOCYTES # (AUTO) 1.4 X10'3 (1.1-4.8); LYMPHOCYTES % (AUTO) 27.2 % (21-51); MEAN CORPUSCULAR HEMOGLOBIN 30.6 PG (27.0-31.0); MEAN CORPUSCULAR HGB CONC 33.2 g/dL (33.0-36.5); MEAN CORPUSCULAR VOLUME 92.1 FL (78-98); MEAN PLATELET VOLUME 8.6 FL (7.4-10.4); MONOCYTES # (AUTO) 0.4 X10'3 (0-0.9); MONOCYTES % (AUTO) 7.2 % (2-12); PLATELET COUNT 328 X10'3 (140-440); RED CELL DISTRIBUTION WIDTH 16.2 % (11.5-14.5)
[2018-11-23 05:29] LABS: ALBUMIN 2.9 G/DL (3.4-5.0); ANION GAP 7 (8-16); BLOOD UREA NITROGEN 25 MG/DL (7-18); BUN/CREATININE RATIO 21.6 (5.4-32.0); CALCIUM 9.3 MG/DL (8.5-10.1); CHLORIDE 96 MMOL/L (99-107); CREATININE 1.16 MG/DL (0.60-1.10); GLUCOSE 208 MG/DL (70-104); POTASSIUM 4.4 MMOL/L (3.5-5.1); SODIUM 133 MMOL/L (135-145); TOTAL CARBON DIOXIDE 30.4 MMOL/L (24-32); eGFR 68 ML/MIN
[2018-11-23 05:32] LABS: PARTIAL THROMBOPLASTIN TIME 31 SECONDS (22-32); PROTHROMBIN TIME 9.8 SECONDS (9.0-12.0)
--- NOTE | 2018-11-23 06:21 | NUR ---
Problems reprioritized. Patient report given, questions answered & plan of care reviewed with AUDREY Leahy.
--- NOTE | 2018-11-23 06:48 | NUR ---
Patient in room [facility]. I have received report from Mary Pandey and had the opportunity to ask questions and assume patient care.
[2018-11-23 07:53] VITALS: BP 122/80
[2018-11-23] MEDS: amLODIPine 5mg tablet PO SCH (08:00)
[2018-11-23] MEDS: lactobacillus rhamnosus 10,000 MMU CELLS/CAPSULE PO SCH ×2 (08:00→20:35)
[2018-11-23] MEDS: K and/or MAG REPLACEMENT MC SCH (08:00)
[2018-11-23] MEDS: losartan 50mg tablet PO SCH (08:00)
[2018-11-23] MEDS: Dakins solution (1/4 strength) 473ml solution TP SCH (08:00)
[2018-11-23] MEDS: nicotine 14mg patch - 24hr TD SCH (08:00)
[2018-11-23] MEDS: heparin, porcine 5000 units/ml vial SQ SCH ×2 (08:00→20:36)
[2018-11-23] MEDS: HYDROchlorothiazide 12.5mg capsule PO SCH (08:00)
--- NOTE | 2018-11-23 08:37 | NUR ---
holding patients heparin and BP medications for surgery today with Dr. Abdullahi.
[2018-11-23] MEDS: CefTRIAXone 2gm/D5W 50ml 50 ML IV SCH (08:50)
[2018-11-23] MEDS: carvedilol 6.25mg tablet PO SCH ×2 (08:58→20:35)
[2018-11-23] MEDS: gabapentin 300mg capsule PO SCH ×3 (08:58→20:35)
[2018-11-23] MEDS: citalopram 20mg tablet PO SCH (08:58)
[2018-11-23] MEDS: lurasidone 20mg tablet PO SCH (08:58)
[2018-11-23] MEDS: metroNIDAZOLE 500mg tablet PO SCH ×2 (08:58→17:51)
[2018-11-23 11:25] VITALS: BP 108/78
[2018-11-23 11:46] VITALS: BP 108/78
--- NOTE | 2018-11-23 17:59 | NUR ---
Per Charge nurse VAC dressing on foot not to be changed today. Pateint is due to go back to OR today. Late in shift I was notified will go back to OR tomorrow and VAC will be adressed at that time. Addendum: 11/23/18 at 1801 by Addie Curtis RN Amended: Links added.
--- NOTE | 2018-11-23 18:16 | NUR ---
Problems reprioritized. Patient report given, questions answered & plan of care reviewed with Mary Starr RN. Student documentation: I have reviewed and agree with all interventions, assessments performed and documented by and Student Medication Administration: For this medication-pass time frame, all medication were reviewed, dispensed, administered and documented per hospital policy by Imelda GIRALDO .
[2018-11-23 20:00] VITALS: BP 129/82
[2018-11-23] MEDS: insulin Lispro (HumaLOG) vial - multi-dose SQ SCH (20:42)
[2018-11-23] MEDS: insulin glargine (Lantus) pen - multi-dose SQ SCH (21:00)
[2018-11-24] VITALS (21 sets, daily range): BP systolic 104–154; BP diastolic 66–103
[2018-11-24] MEDS: metroNIDAZOLE 500mg tablet PO SCH ×3 (01:18→16:20)
[2018-11-24] MEDS: HYDROcodone/acetaminophen 10/325mg tab PO PRN ×3 (03:55→20:06)
[2018-11-24 05:04] LABS: BASOPHILS # (AUTO) 0.1 X10'3 (0-0.2); BASOPHILS % (AUTO) 1.3 % (0-1); EOSINOPHILS # (AUTO) 0.3 X10'3 (0-0.9); EOSINOPHILS % (AUTO) 7.3 % (0-6); HEMATOCRIT 27.9 % (42.0-52.0); HEMOGLOBIN 9.5 g/dl (14.0-17.9); LYMPHOCYTES % (AUTO) 43.2 % (21-51); MEAN CORPUSCULAR VOLUME 91.3 FL (78-98); MEAN PLATELET VOLUME 8.5 FL (7.4-10.4); MONOCYTES # (AUTO) 0.4 X10'3 (0-0.9); MONOCYTES % (AUTO) 8.8 % (2-12); NEUTROPHILS # (AUTO) 1.8 X10'3 (1.8-7.7); NEUTROPHILS % (AUTO) 39.4 % (42-75); PLATELET COUNT 327 X10'3 (140-440); RED BLOOD COUNT 3.06 X10'6 (4.70-6.10); RED CELL DISTRIBUTION WIDTH 15.6 % (11.5-14.5); WHITE BLOOD COUNT 4.6 X10'3 (4.5-11.0)
[2018-11-24 05:12] LABS: ALBUMIN 2.6 G/DL (3.4-5.0); ANION GAP 6 (8-16); BLOOD UREA NITROGEN 22 MG/DL (7-18); BUN/CREATININE RATIO 21.6 (5.4-32.0); CALCIUM 8.9 MG/DL (8.5-10.1); CHLORIDE 100 MMOL/L (99-107); CREATININE 1.02 MG/DL (0.60-1.10); GLUCOSE 122 MG/DL (70-104); POTASSIUM 3.9 MMOL/L (3.5-5.1); SODIUM 136 MMOL/L (135-145); TOTAL CARBON DIOXIDE 30.3 MMOL/L (24-32); eGFR 79 ML/MIN
[2018-11-24] MEDS: normal saline 1000ml 1,000 ML IV SCH ×2 (05:36→18:45)
[2018-11-24 05:49] LABS: PARTIAL THROMBOPLASTIN TIME 29 SECONDS (22-32); PROTHROMBIN TIME 10.1 SECONDS (9.0-12.0)
[2018-11-24] MEDS: K and/or MAG REPLACEMENT MC SCH (07:14)
[2018-11-24] MEDS: heparin, porcine 5000 units/ml vial SQ SCH ×2 (07:15→20:06)
[2018-11-24] MEDS: CefTRIAXone 2gm/D5W 50ml 50 ML IV SCH (07:16)
[2018-11-24] MEDS: citalopram 20mg tablet PO SCH (07:21)
[2018-11-24] MEDS: carvedilol 6.25mg tablet PO SCH ×2 (07:21→20:05)
[2018-11-24] MEDS: gabapentin 300mg capsule PO SCH ×3 (07:21→20:05)
[2018-11-24] MEDS: lurasidone 20mg tablet PO SCH (07:24)
--- NOTE | 2018-11-24 07:57 | NUR ---
Patient in room [facility]. I have received report from Mary Starr RN and had the opportunity to ask questions and assume patient care. Student documentation: I have reviewed and agree with all interventions, assessments performed and documented by [facility] Student Nurse. Student Medication Administration: For this medication-pass time frame, all medication were reviewed, dispensed, administered and documented per hospital policy by Odell Socorro NGUYỄN.
[2018-11-24] MEDS: HYDROchlorothiazide 12.5mg capsule PO SCH (08:00)
[2018-11-24] MEDS: nicotine 14mg patch - 24hr TD SCH (08:00)
[2018-11-24] MEDS: lactobacillus rhamnosus 10,000 MMU CELLS/CAPSULE PO SCH ×2 (08:00→20:05)
[2018-11-24] MEDS: losartan 50mg tablet PO SCH (08:00)
[2018-11-24] MEDS: Dakins solution (1/4 strength) 473ml solution TP SCH (08:00)
[2018-11-24] MEDS: amLODIPine 5mg tablet PO SCH (08:00)
--- NOTE | 2018-11-24 10:34 | NUR ---
Reassessment: Pt with wound VAC to right foot. Pt continues on CHO controlled diet with double protein TID with documented PO intake 100% meeting nutrient needs. Current wt stable with admit. LBM 11/22. Will continue to follow. Recommend: 1. Continue carb controlled diet 2. Double meat TID 3. Weight per rx Addendum: 11/24/18 at [address] Amended: Links added.
--- NOTE | 2018-11-24 11:23 | NUR ---
Dr. Ralph in to see pt. Order for PICC line will be placed by doctor.
--- NOTE | 2018-11-24 12:09 | NUR ---
Report called to OR Recovery, patient ready for surgery
[2018-11-24] MEDS ORDERED: HYDROmorphone inj. 0.5 MG/0.5 ML DISP.SYRIN IV PRN ×2 (12:15)
[2018-11-24] MEDS ORDERED: ringers solution, lacted 1,000 ML IV SCH (12:15)
[2018-11-24] MEDS ORDERED: ondansetron/PF 4mg/2ml inj IV PRN (12:15)
[2018-11-24] MEDS ORDERED: labetalol 20mg/4ml (5mg/ml) syringe IV PRN (12:15)
[2018-11-24] MEDS ORDERED: hydrALAZINE 20mg/ml inj. IV PRN (12:15)
[2018-11-24] MEDS ORDERED: morphine 4 MG/ML inj SYRINge IV PRN ×2 (12:15)
--- NOTE | 2018-11-24 12:15 | NUR ---
Patient off the unit to OR.
[2018-11-24] MEDS ORDERED: fentaNYL/PF 50MCG/1 ML 2ML syringe ONE (13:27)
[2018-11-24] MEDS ORDERED: midazolam 2 mg/2 ml injection ONE (13:29)
[2018-11-24] MEDS ORDERED: propofol inj 20 ML IV ONE (13:29)
[2018-11-24] MEDS ORDERED: BUPIVAcaine/PF 2.5mg/ml (0.25%) 10ml vial ONE (13:53)
[2018-11-24] MEDS ORDERED: povidone-iodine 10% topical ointment 28.4gm TP ONE (14:22)
--- NOTE | 2018-11-24 14:33 | NUR ---
Received from OR via BED, accompanied by Anesthesiologist DR DAVIES and report given by Anesthesiologist. PT DROWSY, DENIES PAIN, RIGHT FOOT W/DRSG AND BERYL WRAP COVERING ENTIRE FOOT, CDI. Addendum: 11/24/18 at 1543 by Krysten Garcia RN Amended: Links added.
--- NOTE | 2018-11-24 16:03 | NUR ---
Report called to receiving nurse. Transferred via BED, NO Belongings WITH PT, PT ATTACHED TO VS MACHINE, BLL, CALL LIGHT GIVEN, SIDE RAILS UP X 2, NOTIFIED RECEIVING RN OF PTS ARRIVAL. Special Issues communicated to receiving nurse. YES. Addendum: 11/24/18 at 1639 by Krysten Garcia RN Amended: Links added.
--- NOTE | 2018-11-24 18:11 | NUR ---
Problems reprioritized. Patient report given, questions answered & plan of care reviewed with Mary Pandey RN.
[2018-11-24] MEDS: insulin Lispro (HumaLOG) vial - multi-dose SQ SCH (19:11)
[2018-11-24] MEDS: insulin glargine (Lantus) pen - multi-dose SQ SCH (21:40)
[2018-11-25] VITALS: BP 100/63
[2018-11-25] MEDS: metroNIDAZOLE 500mg tablet PO SCH ×4 (00:08→23:45)
[2018-11-25] MEDS: HYDROcodone/acetaminophen 10/325mg tab PO PRN ×5 (00:08→22:53)
--- NOTE | 2018-11-25 06:46 | NUR ---
Removed BERYL wrap from pt right foot and reinforced dressing with abd pad. Re-wrapped with clean BERYL.
[2018-11-25] MEDS: nicotine 14mg patch - 24hr TD SCH (07:28)
[2018-11-25] MEDS: heparin, porcine 5000 units/ml vial SQ SCH ×2 (07:28→19:38)
[2018-11-25] MEDS: CefTRIAXone 2gm/D5W 50ml 50 ML IV SCH (07:29)
[2018-11-25 07:30] VITALS: BP 110/69
[2018-11-25] MEDS: lurasidone 20mg tablet PO SCH (07:30)
[2018-11-25] MEDS: gabapentin 300mg capsule PO SCH ×3 (07:30→19:38)
[2018-11-25] MEDS: HYDROchlorothiazide 12.5mg capsule PO SCH (07:30)
[2018-11-25] MEDS: lactobacillus rhamnosus 10,000 MMU CELLS/CAPSULE PO SCH ×2 (07:30→19:38)
[2018-11-25] MEDS: citalopram 20mg tablet PO SCH (07:30)
[2018-11-25] MEDS: losartan 50mg tablet PO SCH (07:30)
[2018-11-25] MEDS: amLODIPine 5mg tablet PO SCH (07:30)
[2018-11-25] MEDS: carvedilol 6.25mg tablet PO SCH ×2 (07:30→19:38)
[2018-11-25] MEDS: K and/or MAG REPLACEMENT MC SCH (08:00)
[2018-11-25] MEDS: Dakins solution (1/4 strength) 473ml solution TP SCH (08:00)
[2018-11-25] MEDS: normal saline 1000ml 1,000 ML IV SCH ×2 (08:05→17:22)
--- NOTE | 2018-11-25 08:30 | NUR ---
Patient in room [facility]. I have received report from Farnaz craig RN and had the opportunity to ask questions and assume patient care.
--- NOTE | 2018-11-25 08:40 | NUR ---
Problems reprioritized. Patient report given, questions answered & plan of care reviewed with AUDREY Askew.
--- NOTE | 2018-11-25 10:35 | NUR ---
Telephone consent obtained from Dr. Ralph who states she did not know to sign paper order in chart. Physician states she provided informed consent at bedside with pt in PACU. Pam VENTURA Addendum: 11/25/18 at 1037 by Brisa Vazquez RN PICC Line placement
--- NOTE | 2018-11-25 10:39 | NUR ---
Was unable to treat patient with insulin this morning because patient was in procedure and it is too late to treat before lunch time. Patient Blood Glucose was 102 this morning.
[2018-11-25 11:00] VITALS: BP 109/67
[2018-11-25] MEDS: insulin Lispro (HumaLOG) vial - multi-dose SQ SCH ×2 (13:47→18:52)
--- NOTE | 2018-11-25 18:32 | NUR ---
Patient in room [facility]. I have received report from Maris VENTURA and had the opportunity to ask questions and assume patient care. Addendum: 11/25/18 at 3145 by Hiro Robins RN Received report from Farnaz Pandey RN, at 3348
--- NOTE | 2018-11-25 18:35 | NUR ---
Problems reprioritized. Patient report given, questions answered & plan of care reviewed with Maris VENTURA.
[2018-11-25 19:52] VITALS: BP 103/67
[2018-11-25] MEDS: insulin glargine (Lantus) pen - multi-dose SQ SCH (21:41)
[2018-11-26 00:01] VITALS: BP 138/91
[2018-11-26] MEDS: HYDROcodone/acetaminophen 10/325mg tab PO PRN ×4 (04:52→20:59)
--- NOTE | 2018-11-26 06:20 | NUR ---
Report given to Hamida VENTURA, questions asked and answered, care of patient assumed at this time.
[2018-11-26 07:00] VITALS: BP 110/68
[2018-11-26] MEDS: K and/or MAG REPLACEMENT MC SCH (07:53)
[2018-11-26] MEDS: CefTRIAXone 2gm/D5W 50ml 50 ML IV SCH (07:53)
[2018-11-26] MEDS: nicotine 14mg patch - 24hr TD SCH (07:53)
[2018-11-26] MEDS: gabapentin 300mg capsule PO SCH ×3 (07:54→20:59)
[2018-11-26] MEDS: metroNIDAZOLE 500mg tablet PO SCH ×2 (07:54→16:54)
[2018-11-26] MEDS: HYDROchlorothiazide 12.5mg capsule PO SCH (07:54)
[2018-11-26] MEDS: lurasidone 20mg tablet PO SCH (07:54)
[2018-11-26] MEDS: citalopram 20mg tablet PO SCH (07:54)
[2018-11-26] MEDS: lactobacillus rhamnosus 10,000 MMU CELLS/CAPSULE PO SCH ×2 (07:54→21:00)
[2018-11-26] MEDS: carvedilol 6.25mg tablet PO SCH ×2 (07:54→21:00)
[2018-11-26] MEDS: losartan 50mg tablet PO SCH (07:54)
[2018-11-26] MEDS: amLODIPine 5mg tablet PO SCH (07:54)
[2018-11-26] MEDS: Dakins solution (1/4 strength) 473ml solution TP SCH (07:56)
[2018-11-26] MEDS: heparin, porcine 5000 units/ml vial SQ SCH ×2 (07:56→21:01)
[2018-11-26 12:00] VITALS: BP 113/68
[2018-11-26] MEDS: insulin Lispro (HumaLOG) vial - multi-dose SQ SCH (13:52)
[2018-11-26] MEDS ORDERED: METR500T PO ×2 (15:53→16:13)
[2018-11-26] MEDS ORDERED: NOR5T PO (15:53)
[2018-11-26] MEDS ORDERED: CEFT2VIA13 IV (15:53)
--- NOTE | 2018-11-26 17:45 | NUR ---
[facility] bri[facility] meds to pt. Pt was picked up be [facility] to take pt back to [facility]. pt states that he understands all DC instructions and will follow up as directed.
--- NOTE | 2018-11-26 18:57 | NUR ---
Patient in room [facility] 351. I have received report from Hamida VENTURA and had the opportunity to ask questions and assume patient care. Patient has been discharge by dayshift but is waiting transport. Per case Management note by Sandra REDMOND Transport was supposed to arrive by 1700. Respiratory Therapy Aide will follow up. Will continue to monitor.
--- NOTE | 2018-11-26 19:25 | NUR ---
CALLED [facility] Case Management Left message regarding pts d/c transport, which has not happened and pt is very upset. [facility] transport has also been called with no avail. unable to leave message with them. Addendum: 11/26/18 at 2043 by Lucila Alvarez RN Amended: Links added.
[2018-11-26 20:00] VITALS: BP 132/86
--- NOTE | 2018-11-26 20:25 | NUR ---
CASE Management was paged. Addendum: 11/26/18 at 2046 by Lucila Alvarez RN Amended: Links added.
--- NOTE | 2018-11-26 20:41 | NUR ---
Nursing printing worker supervisor notified of pts transportation situation and that we have made several attempts to get in touch with CM, and [facility] transport. Nursing printing worker supervisor will attempt to get in touch with [facility]. Addendum: 11/26/18 at 2043 by Lucila Alvarez RN Amended: Links added.
[2018-11-26] MEDS: insulin glargine (Lantus) pen - multi-dose SQ SCH (20:54)
--- NOTE | 2018-11-26 21:00 | NUR ---
Patient sitting at side of bed, very frustrated that transport has not arrived. Notified patient that we have called multiple times and will try to have him transported tonight. Notified patient that we called nursing electrician supervisor airplane who also was unable to reach transport. Notified him that he will need to stay the night due to unable to transport at this time. Will continue to monitor.
[2018-11-27] VITALS: BP 122/75
[2018-11-27] MEDS: metroNIDAZOLE 500mg tablet PO SCH ×2 (00:59→07:52)
--- NOTE | 2018-11-27 06:20 | NUR ---
Problems reprioritized. Patient report given, questions answered & plan of care reviewed with Hamida VENTURA.
[2018-11-27 07:12] VITALS: BP 122/78
[2018-11-27] MEDS: lactobacillus rhamnosus 10,000 MMU CELLS/CAPSULE PO SCH (07:52)
[2018-11-27] MEDS: gabapentin 300mg capsule PO SCH (07:52)
[2018-11-27] MEDS: heparin, porcine 5000 units/ml vial SQ SCH (07:53)
[2018-11-27] MEDS: HYDROcodone/acetaminophen 10/325mg tab PO PRN (07:53)
[2018-11-27] MEDS: lurasidone 20mg tablet PO SCH (07:53)
[2018-11-27] MEDS: carvedilol 6.25mg tablet PO SCH (07:53)
[2018-11-27] MEDS: Dakins solution (1/4 strength) 473ml solution TP SCH (07:54)
[2018-11-27] MEDS: HYDROchlorothiazide 12.5mg capsule PO SCH (07:54)
[2018-11-27] MEDS: losartan 50mg tablet PO SCH (07:54)
[2018-11-27] MEDS: citalopram 20mg tablet PO SCH (07:54)
[2018-11-27] MEDS: amLODIPine 5mg tablet PO SCH (07:54)
[2018-11-27] MEDS: CefTRIAXone 2gm/D5W 50ml 50 ML IV SCH (07:55)
[2018-11-27] MEDS: K and/or MAG REPLACEMENT MC SCH (07:55)
[2018-11-27] MEDS: nicotine 14mg patch - 24hr TD SCH (08:16)
[2018-11-27] MEDS: insulin Lispro (HumaLOG) vial - multi-dose SQ SCH (08:27)
== END 2018-11-27 09:02 | disposition home or self-care (01) | DRG 305 ==
LOC: ER 10:00 → ED HOLD 16:23 → SUR 3N 19:40 → PACU 11-17 13:08 → SUR 3N 11-17 17:25 → PACU 11-24 12:27 → SUR 3N 11-24 16:15
PROVIDERS: ADMIT Internal Medicine; ATTEND Internal Medicine
PROC: 0Y6M0Z0 Detachment at Right Foot, Complete, Open Approach (ICD-10-PCS; 2018-11-17)
PROC: 0HXMXZZ Transfer Right Foot Skin, External Approach (ICD-10-PCS; 2018-11-24)
PROC: 0JBQ0ZZ Excision of Right Foot Subcutaneous Tissue and Fascia, Open Approach (ICD-10-PCS; 2018-11-24)
PROC: 02HV33Z Insertion of Infusion Device into Superior Vena Cava, Percutaneous Approach (ICD-10-PCS; principal; 2018-11-25)
PROC: 4A02X4A Measurement of Cardiac Electrical Activity, Guidance, External Approach (ICD-10-PCS; 2018-11-25)
PROC: B548ZZA Ultrasonography of Superior Vena Cava, Guidance (ICD-10-PCS; 2018-11-25)
DX: T87.43 Infection of amputation stump, right lower extremity (principal); D72.1 Eosinophilia; E11.649 Type 2 diabetes mellitus with hypoglycemia without coma; E11.69 Type 2 diabetes mellitus with other specified complication; M86.671 Other chronic osteomyelitis, right ankle and foot; F12.90 Cannabis use, unspecified, uncomplicated; G89.4 Chronic pain syndrome; I10 Essential (primary) hypertension; Y83.5 Amputation of limb(s) as the cause of abnormal reaction of the patient, or of later complication, without mention of misadventure at the time of the procedure; F17.209 Nicotine dependence, unspecified, with unspecified nicotine-induced disorders; J44.9 Chronic obstructive pulmonary disease, unspecified; B96.89 Other specified bacterial agents as the cause of diseases classified elsewhere; Z88.1 Allergy status to other antibiotic agents; Z91.19 Patient's noncompliance with other medical treatment and regimen; Z79.4 Long term (current) use of insulin; Y92.89 Other specified places as the place of occurrence of the external cause; Z79.899 Other long term (current) drug therapy
CPT/HCPCS: 36415; 36573; 71045; 73620; 73723; 80048; 80053; 80202; 80305; 81001; 82948; 83036; 83605; 83735; 84145; 85025; 85610; 85651; 85730; 86140; 87040; 87070; 87077; 87186; 93005; 96361; 96365; 97116; 97162; 97164; 97530; 99285; A6222; A6446; A6449; A7000; A9579; G0378; J0696; J1644; J1815; J2001; J2250; J2270; J2543; J2704; J3010; J3370; J3490; J7030; J7120

== ENCOUNTER 2020-03-22 14:41 | Inpatient (IN) | payer MEDICAID ==
[~2020-03-22] VITALS: Ht 185.4 cm; Wt 131.0 kg
[~2020-03-22 14:41] MED LIST changes: +CARV6.252 PO; +CITA20TA2 PO; +INSU100C10 SQ; +LOSA25TA41 PO; +LURA20TA PO; +METR500T PO; +NOR5T PO; +OXYC-150 PO
--- NOTE | 2020-03-22 15:40 | NUR ---
received report from Teri VENTURA from [facility]. Pt is to leave from there shortly and approximate arrival time should be about 1845.
[2020-03-22 18:00] VITALS: BP 196/133
--- NOTE | 2020-03-22 19:11 | NUR ---
report to Marcia VENTURA
[2020-03-22] MEDS ORDERED: CITA20TA28 PO (19:39)
[2020-03-22] MEDS ORDERED: IBUP-1984 PO (19:39)
[2020-03-22] MEDS ORDERED: GABA600T13 PO (19:39)
[2020-03-22] MEDS ORDERED: MULT-1074 PO (19:39)
[2020-03-22] MEDS ORDERED: LURA40TA3 PO (19:39)
[2020-03-22] MEDS ORDERED: LOSA50TA3 PO (19:39)
[2020-03-22] MEDS ORDERED: MESSAGE TO PHARMACY PO ONE (19:55)
[2020-03-22] MEDS ORDERED: dextrose 50%-water 50ml dispensing syringe IV PRN ×2 (19:55)
[2020-03-22] MEDS ORDERED: dextrose ORAL solution 15 GM/59 ML bottle PO PRN ×2 (19:55)
[2020-03-22] MEDS ORDERED: ondansetron/PF 4mg/2ml inj IV PRN (19:55)
[2020-03-22] MEDS ORDERED: acetaminophen 325mg tablet PO PRN (19:55)
[2020-03-22] MEDS ORDERED: mag hydrox/Alum hydrox/simeth 30ml oral suspension PO PRN (19:55)
[2020-03-22] MEDS ORDERED: glucagon, human recombinant 1mg kit SUBCUT PRN (19:55)
[2020-03-22] MEDS ORDERED: magnesium hydroxide 30ml (MOM) UD suspension PO PRN (19:55)
[2020-03-22] MEDS ORDERED: LORazepam 1 MG tablet PO PRN (20:00)
[2020-03-22] MEDS: gabapentin 300mg capsule PO SCH (20:49)
[2020-03-22] MEDS ORDERED: losartan 50mg tablet PO ONE (21:10)
[2020-03-22 22:00] VITALS: BP 201/137
[2020-03-22] MEDS: insulin glargine (Lantus) pen - multi-dose SQ SCH (22:57)
[2020-03-22] MEDS: insulin Lispro (HumaLOG) vial - multi-dose SQ SCH (22:58)
[2020-03-22] MEDS: lurasidone 20mg tablet PO SCH (23:00)
[2020-03-22] MEDS: heparin, porcine 5000 units/ml vial SQ SCH (23:07)
[2020-03-22] MEDS: HYDROcodone/acetaminophen 10/325mg tab PO PRN (23:43)
[2020-03-23 04:03] VITALS: BP 163/104
--- NOTE | 2020-03-23 05:50 | NUR ---
Problems reprioritized. Patient report given, questions answered & plan of care reviewed with Cate VENTURA.
[2020-03-23 06:18] LABS: BASOPHILS # (AUTO) 0.1 X10'3 (0-0.2); BASOPHILS % (AUTO) 1.4 % (0-1); EOSINOPHILS # (AUTO) 0.2 X10'3 (0-0.9); EOSINOPHILS % (AUTO) 3.7 % (0-6); HEMATOCRIT 34.3 % (42.0-52.0); HEMOGLOBIN 11.4 g/dl (14.0-17.9); LYMPHOCYTES # (AUTO) 1.1 X10'3 (1.1-4.8); LYMPHOCYTES % (AUTO) 21.8 % (21-51); MEAN CORPUSCULAR HEMOGLOBIN 31.7 PG (27.0-31.0); MEAN CORPUSCULAR HGB CONC 33.2 g/dL (33.0-36.5); MEAN CORPUSCULAR VOLUME 95.4 FL (78-98); MEAN PLATELET VOLUME 7.7 FL (7.4-10.4); MONOCYTES # (AUTO) 0.8 X10'3 (0-0.9); MONOCYTES % (AUTO) 15.8 % (2-12); NEUTROPHILS # (AUTO) 2.9 X10'3 (1.8-7.7); NEUTROPHILS % (AUTO) 57.3 % (42-75); PLATELET COUNT 430 X10'3 (140-440); RED BLOOD COUNT 3.59 X10'6 (4.70-6.10); RED CELL DISTRIBUTION WIDTH 15.1 % (11.5-14.5)
[2020-03-23 06:26] LABS: ALANINE AMINOTRANSFERASE 41 U/L (12-78); ALBUMIN 2.3 G/DL (3.4-5.0); ALBUMIN/GLOBULIN RATIO 0.5 (1.1-1.5); ALKALINE PHOSPHATASE 64 IU/L (46-116); ANION GAP 4 (8-16); ASPARTATE AMINO TRANSFERASE 52 U/L (10-37); BILIRUBIN,TOTAL 0.2 MG/DL (0.1-1.0); BLOOD UREA NITROGEN 9 MG/DL (7-18); BUN/CREATININE RATIO 8.6 (5.4-32.0); CALCIUM 9.1 MG/DL (8.5-10.1); CHLORIDE 97 MMOL/L (99-107); CREATININE 1.05 MG/DL (0.60-1.10); GLUCOSE 247 MG/DL (70-104); POTASSIUM 4.3 MMOL/L (3.5-5.1); SODIUM 133 MMOL/L (135-145); TOTAL CARBON DIOXIDE 31.7 MMOL/L (24-32); TOTAL PROTEIN 6.9 G/DL (6.4-8.2); eGFR 75 ML/MIN
[2020-03-23] MEDS: losartan 50mg tablet PO SCH ×2 (07:46→20:00)
[2020-03-23] MEDS: gabapentin 300mg capsule PO SCH ×4 (07:47→21:07)
[2020-03-23] MEDS: multivitamins, therapeutics tablet PO SCH (07:47)
[2020-03-23] MEDS: heparin, porcine 5000 units/ml vial SQ SCH ×2 (07:47→19:58)
[2020-03-23] MEDS: citalopram 20mg tablet PO SCH (07:47)
[2020-03-23 07:48] LABS: TOTAL CELLS COUNTED 100
[2020-03-23] MEDS: CefTRIAXone 2gm/D5W 50ml 50 ML IV SCH (07:48)
[2020-03-23] MEDS: carvedilol 6.25mg tablet PO SCH ×2 (07:48→20:00)
[2020-03-23 07:54] LABS: PLATELET ESTIMATE NORMAL; TOXIC GRANULATION 3+
[2020-03-23] MEDS: insulin Lispro (HumaLOG) vial - multi-dose SQ SCH ×3 (08:27→19:06)
[2020-03-23 10:00] VITALS: BP 146/104
[2020-03-23 11:14] VITALS: BP 186/110
[2020-03-23] MEDS ORDERED: GADOTERATE MEGLUMINE 7.5 MMOL/15 ML VIAL IV ONE (12:05)
[2020-03-23 15:46] LABS: GIANT PLATELET FEW; LARGE PLATELETS FEW
--- NOTE | 2020-03-23 16:19 | NUR ---
DM Consult: Pt admit w/ R reyes cellulitis and concerns for possible osteomyelitis per EMR. Hx DM A1C 13.0 up from 10.19 October 2018 w/ hx prior TMA as well. Would benefit from high protein/DM ed prior to discharge. Addendum: 03/23/20 at [address] Amended: Links added.
[2020-03-23] MEDS: HYDROcodone/acetaminophen 10/325mg tab PO PRN ×2 (17:00→23:06)
[2020-03-23] MEDS: furosemide 20 MG/2 ML vial IV SCH ×2 (17:31→20:00)
[2020-03-23 18:00] VITALS: BP 148/102
--- NOTE | 2020-03-23 18:20 | NUR ---
Patient in room [facility]TH[facility] 4016. I have received report from Cate VENTURA and had the opportunity to ask questions and assume patient care.
--- NOTE | 2020-03-23 18:44 | NUR ---
Problems reprioritized. Patient report given, questions answered & plan of care reviewed with Alaina VENTURA.
[2020-03-23] MEDS: lactobacillus rhamnosus 10,000 MMU CELLS/CAPSULE PO SCH (19:58)
[2020-03-23] MEDS: lurasidone 20mg tablet PO SCH (21:07)
[2020-03-23] MEDS: insulin glargine (Lantus) pen - multi-dose SQ SCH (21:10)
[2020-03-23 22:00] VITALS: BP 161/68
[2020-03-24] MEDS: HYDROcodone/acetaminophen 10/325mg tab PO PRN ×4 (04:53→17:23)
[2020-03-24 06:10] VITALS: BP 158/102
--- NOTE | 2020-03-24 06:23 | NUR ---
Problems reprioritized. Patient report given, questions answered & plan of care reviewed with Cordelia VENTURA.
--- NOTE | 2020-03-24 06:28 | NUR ---
Patient in room ORTHO 4016. I have received report from Alaina VENTURA and had the opportunity to ask questions and assume patient care.
--- NOTE | 2020-03-24 06:32 | NUR ---
Patient in room ORTHO 4016. I have received report from Alaina VENTURA and had the opportunity to ask questions and assume patient care.
[2020-03-24 06:45] LABS: BASOPHILS # (AUTO) 0.1 X10'3 (0-0.2); BASOPHILS % (AUTO) 1.8 % (0-1); EOSINOPHILS # (AUTO) 0.2 X10'3 (0-0.9); HEMATOCRIT 36.4 % (42.0-52.0); LYMPHOCYTES # (AUTO) 1.2 X10'3 (1.1-4.8); LYMPHOCYTES % (AUTO) 24.2 % (21-51); MEAN CORPUSCULAR HEMOGLOBIN 31.1 PG (27.0-31.0); MEAN CORPUSCULAR HGB CONC 33.1 g/dL (33.0-36.5); MEAN PLATELET VOLUME 7.5 FL (7.4-10.4); MONOCYTES # (AUTO) 0.8 X10'3 (0-0.9); MONOCYTES % (AUTO) 15.8 % (2-12); NEUTROPHILS # (AUTO) 2.8 X10'3 (1.8-7.7); NEUTROPHILS % (AUTO) 55.2 % (42-75); PLATELET COUNT 525 X10'3 (140-440); RED BLOOD COUNT 3.87 X10'6 (4.70-6.10); RED CELL DISTRIBUTION WIDTH 14.9 % (11.5-14.5); WHITE BLOOD COUNT 5.1 X10'3 (4.5-11.0)
[2020-03-24 06:57] LABS: ALANINE AMINOTRANSFERASE 46 U/L (12-78); ALBUMIN 2.3 G/DL (3.4-5.0); ALBUMIN/GLOBULIN RATIO 0.5 (1.1-1.5); ALKALINE PHOSPHATASE 62 IU/L (46-116); ANION GAP 7 (8-16); ASPARTATE AMINO TRANSFERASE 49 U/L (10-37); BILIRUBIN,TOTAL 0.2 MG/DL (0.1-1.0); BLOOD UREA NITROGEN 12 MG/DL (7-18); BUN/CREATININE RATIO 10.9 (5.4-32.0); CALCIUM 8.8 MG/DL (8.5-10.1); CHLORIDE 98 MMOL/L (99-107); GLUCOSE 183 MG/DL (70-104); POTASSIUM 4.2 MMOL/L (3.5-5.1); SODIUM 135 MMOL/L (135-145); TOTAL CARBON DIOXIDE 29.7 MMOL/L (24-32); TOTAL PROTEIN 6.9 G/DL (6.4-8.2); eGFR 71 ML/MIN
[2020-03-24] MEDS: furosemide 20 MG/2 ML vial IV SCH ×2 (08:06→20:19)
[2020-03-24] MEDS: lactobacillus rhamnosus 10,000 MMU CELLS/CAPSULE PO SCH ×2 (08:06→20:18)
[2020-03-24] MEDS: citalopram 20mg tablet PO SCH (08:06)
[2020-03-24] MEDS: carvedilol 6.25mg tablet PO SCH ×2 (08:06→20:19)
[2020-03-24] MEDS: gabapentin 300mg capsule PO SCH ×4 (08:06→20:18)
[2020-03-24] MEDS: losartan 50mg tablet PO SCH ×2 (08:06→20:18)
[2020-03-24] MEDS: multivitamins, therapeutics tablet PO SCH (08:06)
[2020-03-24] MEDS: CefTRIAXone 2gm/D5W 50ml 50 ML IV SCH (08:15)
[2020-03-24] MEDS: heparin, porcine 5000 units/ml vial SQ SCH ×2 (08:15→20:19)
[2020-03-24] MEDS: insulin Lispro (HumaLOG) vial - multi-dose SQ SCH ×3 (09:00→19:17)
[2020-03-24 10:00] VITALS: BP 140/97
[2020-03-24 18:00] VITALS: BP 143/89
--- NOTE | 2020-03-24 18:30 | NUR ---
Patient in room ORTHO 4016. I have received report from FRANTZ VENTURA and had the opportunity to ask questions and assume patient care.
--- NOTE | 2020-03-24 18:53 | NUR ---
Problems reprioritized. Patient report given, questions answered & plan of care reviewed with Malka VENTURA.
[2020-03-24] MEDS: lurasidone 20mg tablet PO SCH (20:19)
[2020-03-24] MEDS: insulin glargine (Lantus) pen - multi-dose SQ SCH (21:13)
[2020-03-24 22:00] VITALS: BP 132/84
[2020-03-25] MEDS: HYDROcodone/acetaminophen 10/325mg tab PO PRN ×4 (05:54→22:34)
[2020-03-25 05:58] VITALS: BP 121/89
[2020-03-25 06:14] LABS: BASOPHILS # (AUTO) 0.1 X10'3 (0-0.2); BASOPHILS % (AUTO) 1.5 % (0-1); EOSINOPHILS # (AUTO) 0.1 X10'3 (0-0.9); EOSINOPHILS % (AUTO) 2.4 % (0-6); HEMATOCRIT 37.2 % (42.0-52.0); LYMPHOCYTES # (AUTO) 1.2 X10'3 (1.1-4.8); LYMPHOCYTES % (AUTO) 21.1 % (21-51); MEAN CORPUSCULAR HEMOGLOBIN 30.6 PG (27.0-31.0); MEAN CORPUSCULAR HGB CONC 32.2 g/dL (33.0-36.5); MEAN CORPUSCULAR VOLUME 95.1 FL (78-98); MEAN PLATELET VOLUME 7.7 FL (7.4-10.4); MONOCYTES # (AUTO) 0.9 X10'3 (0-0.9); MONOCYTES % (AUTO) 15.6 % (2-12); NEUTROPHILS # (AUTO) 3.3 X10'3 (1.8-7.7); NEUTROPHILS % (AUTO) 59.4 % (42-75); PLATELET COUNT 565 X10'3 (140-440); RED BLOOD COUNT 3.91 X10'6 (4.70-6.10); RED CELL DISTRIBUTION WIDTH 14.8 % (11.5-14.5); WHITE BLOOD COUNT 5.5 X10'3 (4.5-11.0)
[2020-03-25 06:33] LABS: ALANINE AMINOTRANSFERASE 41 U/L (12-78); ALBUMIN 2.4 G/DL (3.4-5.0); ALBUMIN/GLOBULIN RATIO 0.5 (1.1-1.5); ALKALINE PHOSPHATASE 58 IU/L (46-116); ANION GAP 6 (8-16); ASPARTATE AMINO TRANSFERASE 34 U/L (10-37); BILIRUBIN,TOTAL 0.2 MG/DL (0.1-1.0); BLOOD UREA NITROGEN 20 MG/DL (7-18); BUN/CREATININE RATIO 16.8 (5.4-32.0); CALCIUM 9.2 MG/DL (8.5-10.1); CHLORIDE 99 MMOL/L (99-107); CREATININE 1.19 MG/DL (0.60-1.10); GLUCOSE 209 MG/DL (70-104); POTASSIUM 4.1 MMOL/L (3.5-5.1); SODIUM 135 MMOL/L (135-145); TOTAL CARBON DIOXIDE 30.4 MMOL/L (24-32); TOTAL PROTEIN 6.9 G/DL (6.4-8.2); eGFR 65 ML/MIN
--- NOTE | 2020-03-25 06:38 | NUR ---
Problems reprioritized. Patient report given, questions answered & plan of care reviewed with LEONARD VENTURA.
[2020-03-25] MEDS: furosemide 20 MG/2 ML vial IV SCH ×2 (07:29→20:43)
[2020-03-25] MEDS: CefTRIAXone 2gm/D5W 50ml 50 ML IV SCH (07:29)
[2020-03-25] MEDS: heparin, porcine 5000 units/ml vial SQ SCH ×2 (07:30→20:43)
[2020-03-25] MEDS: carvedilol 6.25mg tablet PO SCH ×2 (07:31→20:44)
[2020-03-25] MEDS: lactobacillus rhamnosus 10,000 MMU CELLS/CAPSULE PO SCH ×2 (07:31→20:43)
[2020-03-25] MEDS: multivitamins, therapeutics tablet PO SCH (07:31)
[2020-03-25] MEDS: citalopram 20mg tablet PO SCH (07:31)
[2020-03-25] MEDS: gabapentin 300mg capsule PO SCH ×4 (07:31→20:43)
[2020-03-25] MEDS: losartan 50mg tablet PO SCH ×2 (07:31→20:44)
[2020-03-25] MEDS: insulin Lispro (HumaLOG) vial - multi-dose SQ SCH ×3 (08:44→18:44)
[2020-03-25 11:00] VITALS: BP 139/88
[2020-03-25 17:02] VITALS: BP 125/90
--- NOTE | 2020-03-25 18:20 | NUR ---
Patient in room ORTHO 4016. I have received report from AUDREY Esposito and had the opportunity to ask questions and assume patient care.
--- NOTE | 2020-03-25 18:23 | NUR ---
Problems reprioritized. Patient report given, questions answered & plan of care reviewed with Justina VENTURA.
[2020-03-25] MEDS: lurasidone 20mg tablet PO SCH (20:44)
[2020-03-25] MEDS: insulin glargine (Lantus) pen - multi-dose SQ SCH (20:49)
[2020-03-25 22:00] VITALS: BP 131/98
[2020-03-26] MEDS: HYDROcodone/acetaminophen 10/325mg tab PO PRN ×4 (02:33→18:54)
[2020-03-26 06:00] VITALS: BP 158/107
--- NOTE | 2020-03-26 06:28 | NUR ---
Problems reprioritized. Patient report given, questions answered & plan of care reviewed with AUDREY Samuel.
--- NOTE | 2020-03-26 06:30 | NUR ---
Patient in room ORTHO 4016. I have received report from AUDREY Metcalf and had the opportunity to ask questions and assume patient care.
[2020-03-26 07:14] LABS: HEMOGLOBIN 12.1 g/dl (14.0-17.9); LYMPHOCYTES # (AUTO) 1.2 X10'3 (1.1-4.8); MEAN CORPUSCULAR VOLUME 94.9 FL (78-98)
[2020-03-26 07:18] LABS: BASOPHILS % (AUTO) 0.7 % (0-1); EOSINOPHILS # (AUTO) 0.2 X10'3 (0-0.9); EOSINOPHILS % (AUTO) 2.3 % (0-6); HEMATOCRIT 37.2 % (42.0-52.0); LYMPHOCYTES % (AUTO) 17.8 % (21-51); MEAN CORPUSCULAR HEMOGLOBIN 30.8 PG (27.0-31.0); MEAN CORPUSCULAR HGB CONC 32.4 g/dL (33.0-36.5); MONOCYTES # (AUTO) 1.1 X10'3 (0-0.9); MONOCYTES % (AUTO) 16.5 % (2-12); NEUTROPHILS # (AUTO) 4.2 X10'3 (1.8-7.7); NEUTROPHILS % (AUTO) 62.7 % (42-75); PLATELET COUNT 538 X10'3 (140-440); RED BLOOD COUNT 3.92 X10'6 (4.70-6.10); RED CELL DISTRIBUTION WIDTH 15.2 % (11.5-14.5); WHITE BLOOD COUNT 6.6 X10'3 (4.5-11.0)
[2020-03-26 07:30] LABS: ALANINE AMINOTRANSFERASE 35 U/L (12-78); ALBUMIN 2.5 G/DL (3.4-5.0); ALBUMIN/GLOBULIN RATIO 0.5 (1.1-1.5); ALKALINE PHOSPHATASE 59 IU/L (46-116); ANION GAP 7 (8-16); ASPARTATE AMINO TRANSFERASE 24 U/L (10-37); BILIRUBIN,TOTAL 0.2 MG/DL (0.1-1.0); BLOOD UREA NITROGEN 23 MG/DL (7-18); CALCIUM 8.8 MG/DL (8.5-10.1); CHLORIDE 99 MMOL/L (99-107); CREATININE 1.15 MG/DL (0.60-1.10); GLUCOSE 247 MG/DL (70-104); POTASSIUM 4.2 MMOL/L (3.5-5.1); SODIUM 134 MMOL/L (135-145); TOTAL CARBON DIOXIDE 28.5 MMOL/L (24-32); TOTAL PROTEIN 7.2 G/DL (6.4-8.2); eGFR 68 ML/MIN
[2020-03-26] MEDS: insulin Lispro (HumaLOG) vial - multi-dose SQ SCH ×4 (09:10→22:23)
[2020-03-26] MEDS: furosemide 20 MG/2 ML vial IV SCH ×2 (09:11→21:00)
[2020-03-26] MEDS: lactobacillus rhamnosus 10,000 MMU CELLS/CAPSULE PO SCH ×2 (09:12→21:00)
[2020-03-26] MEDS: carvedilol 6.25mg tablet PO SCH ×2 (09:12→21:00)
[2020-03-26] MEDS: losartan 50mg tablet PO SCH ×2 (09:12→21:00)
[2020-03-26] MEDS: citalopram 20mg tablet PO SCH (09:12)
[2020-03-26] MEDS: CefTRIAXone 2gm/D5W 50ml 50 ML IV SCH (09:12)
[2020-03-26] MEDS: multivitamins, therapeutics tablet PO SCH (09:13)
[2020-03-26] MEDS: gabapentin 300mg capsule PO SCH ×4 (09:13→21:00)
[2020-03-26] MEDS: heparin, porcine 5000 units/ml vial SQ SCH ×2 (09:14→21:00)
[2020-03-26 10:00] VITALS: BP 98/75
--- NOTE | 2020-03-26 12:35 | NUR ---
F/u: Pt seen by RD for written/verbal DM/high protein diet eds w/ RD contact information provided. Pt reports known non-compliance w/ diet requested further diet ed regarding carbohydrates and carb sources. RD provided thorough DM ed review. Pt reports counselor he sees is printing off keto diet recipes; RD discouraged following keto diet since not appropriate and higher risk DKA in DM though shared that simply lower carb recipes are appropriate. Pt reports prior break-up w/ girlfriend followed by 3 month "binge" and non-compliance. Pt also reports new relationship now and afraid insulin would effect sexual performance so stopped taking. RD encourage pt to take medication per Rx, check GLU routinely, and routinely see PCP for DM management. Pt is agreeable to double eggs at breakfast and double meats BIDLD; dietary notified. Addendum: 03/26/20 at [address] Amended: Links added.
--- NOTE | 2020-03-26 15:45 | NUR ---
At approximately 1545, pt walked out to the Nurse's Station and asked if I could check his blood glucose as he felt it might be low. Pt reports feeling shaky and dizzy. Extremities were very cold. Blood Glucose at that time was 58. Pt requested to have food to bring up his blood glucose. Pt ate multiple food items and blood glucose was 52@ 1615. Pt then given 1 dose of Glucose Shot. Recheck of Blood Glucose at 1630 was 72. Pt then rechecked at 1700 and blood glucose was 107. Pt felt much better at this time. Will inform Noc Nurse of recent changes in Blood Glucose. Will continue to monitor patient.
[2020-03-26 18:00] VITALS: BP 149/99
[2020-03-26] MEDS: lurasidone 20mg tablet PO SCH (21:00)
[2020-03-26] MEDS: insulin glargine (Lantus) pen - multi-dose SQ SCH (21:00)
[2020-03-26 22:00] VITALS: BP 137/89
--- NOTE | 2020-03-27 00:50 | NUR ---
I ADMINISTERED NIGHT MEDICATIONS INCLUDING INSULIN AT 2100. BUT NONE OF THE MEDICATION DIDN'T GET SAVED ON EMAR.
[2020-03-27] MEDS: HYDROcodone/acetaminophen 10/325mg tab PO PRN ×2 (05:50→14:10)
[2020-03-27 06:24] LABS: BASOPHILS # (AUTO) 0.1 X10'3 (0-0.2); BASOPHILS % (AUTO) 1.8 % (0-1); EOSINOPHILS # (AUTO) 0.1 X10'3 (0-0.9); EOSINOPHILS % (AUTO) 2.3 % (0-6); HEMATOCRIT 37.4 % (42.0-52.0); HEMOGLOBIN 12.2 g/dl (14.0-17.9); LYMPHOCYTES % (AUTO) 18.4 % (21-51); MEAN CORPUSCULAR HEMOGLOBIN 30.9 PG (27.0-31.0); MEAN CORPUSCULAR HGB CONC 32.6 g/dL (33.0-36.5); MEAN CORPUSCULAR VOLUME 94.8 FL (78-98); MEAN PLATELET VOLUME 7.8 FL (7.4-10.4); MONOCYTES # (AUTO) 0.9 X10'3 (0-0.9); MONOCYTES % (AUTO) 15.9 % (2-12); NEUTROPHILS # (AUTO) 3.3 X10'3 (1.8-7.7); NEUTROPHILS % (AUTO) 61.6 % (42-75); PLATELET COUNT 542 X10'3 (140-440); RED BLOOD COUNT 3.94 X10'6 (4.70-6.10); RED CELL DISTRIBUTION WIDTH 15.2 % (11.5-14.5); WHITE BLOOD COUNT 5.4 X10'3 (4.5-11.0)
--- NOTE | 2020-03-27 06:25 | NUR ---
Problems reprioritized. Patient report given, questions answered & plan of care reviewed with AUDREY GONZALEZ.
--- NOTE | 2020-03-27 06:28 | NUR ---
Received report from Althea VENTURA
[2020-03-27 06:43] LABS: ALANINE AMINOTRANSFERASE 31 U/L (12-78); ALBUMIN 2.6 G/DL (3.4-5.0); ALBUMIN/GLOBULIN RATIO 0.5 (1.1-1.5); ALKALINE PHOSPHATASE 59 IU/L (46-116); ANION GAP 6 (8-16); ASPARTATE AMINO TRANSFERASE 19 U/L (10-37); BILIRUBIN,TOTAL 0.1 MG/DL (0.1-1.0); BLOOD UREA NITROGEN 29 MG/DL (7-18); BUN/CREATININE RATIO 22.1 (5.4-32.0); CALCIUM 8.9 MG/DL (8.5-10.1); CHLORIDE 98 MMOL/L (99-107); CREATININE 1.31 MG/DL (0.60-1.10); GLUCOSE 266 MG/DL (70-104); POTASSIUM 4.5 MMOL/L (3.5-5.1); SODIUM 133 MMOL/L (135-145); TOTAL CARBON DIOXIDE 29.1 MMOL/L (24-32); TOTAL PROTEIN 7.5 G/DL (6.4-8.2); eGFR 58 ML/MIN
[2020-03-27 07:09] VITALS: BP 153/104
[2020-03-27] MEDS: citalopram 20mg tablet PO SCH (08:18)
[2020-03-27] MEDS: lactobacillus rhamnosus 10,000 MMU CELLS/CAPSULE PO SCH (08:19)
[2020-03-27] MEDS: carvedilol 6.25mg tablet PO SCH (08:19)
[2020-03-27] MEDS: losartan 50mg tablet PO SCH (08:20)
[2020-03-27] MEDS: CefTRIAXone 2gm/D5W 50ml 50 ML IV SCH (08:20)
[2020-03-27] MEDS: furosemide 20 MG/2 ML vial IV SCH (08:20)
[2020-03-27] MEDS: gabapentin 300mg capsule PO SCH ×2 (08:21→14:10)
[2020-03-27] MEDS: multivitamins, therapeutics tablet PO SCH (08:21)
[2020-03-27] MEDS: heparin, porcine 5000 units/ml vial SQ SCH (08:23)
[2020-03-27 10:00] VITALS: BP 112/80
[2020-03-27] MEDS: insulin Lispro (HumaLOG) vial - multi-dose SQ SCH (10:18)
[2020-03-27] MEDS ORDERED: INSU100V11 SQ (11:38)
[2020-03-27] MEDS ORDERED: SYRI1DIS90 MC (11:38)
[2020-03-27] MEDS ORDERED: CEPH500C5 PO (11:38)
[2020-03-27] MEDS ORDERED: METF500T PO (11:38)
[2020-03-27] MEDS ORDERED: LANTUS SQ (11:38)
--- NOTE | 2020-03-27 12:13 | NUR ---
Wound care just dressed all wounds before discharged. Addendum: 03/27/20 at 1213 by Heidi Bañuelos RN Amended: Links added.
--- NOTE | 2020-03-27 12:54 | NUR ---
Initial: Pt admit w/ R TMA osteomyelitis, R pretibial cellulitis, and hx T2DM insulin-dependent and non-complaint; see prior RD note for further DM details. PO 100% avg carb controlled diet w/ additional proteins TID meeting needs. LBM 03/26. No nutrition concerns at this time. Will continue to monitor. Rec: 1. continue carb controlled diet 2. double eggs at breakfast; double meats BIDLD 3. routine bowel care 4. wt per rx Addendum: 03/27/20 at [address] Amended: Links added.
== END 2020-03-27 16:00 | disposition home or self-care (01) | DRG 383 ==
LOC: ORTHO 4S 18:43 → UNDOADMIN 18:43 → ORTHO 4S 19:53
PROVIDERS: ADMIT Family Medicine; ATTEND Family Medicine
DX: L03.115 Cellulitis of right lower limb (principal); E11.22 Type 2 diabetes mellitus with diabetic chronic kidney disease; E11.40 Type 2 diabetes mellitus with diabetic neuropathy, unspecified; E11.621 Type 2 diabetes mellitus with foot ulcer; L97.529 Non-pressure chronic ulcer of other part of left foot with unspecified severity; D64.9 Anemia, unspecified; E87.1 Hypo-osmolality and hyponatremia; I12.9 Hypertensive chronic kidney disease with stage 1 through stage 4 chronic kidney disease, or unspecified chronic kidney disease; N18.9 Chronic kidney disease, unspecified; L02.415 Cutaneous abscess of right lower limb; E11.65 Type 2 diabetes mellitus with hyperglycemia; E78.5 Hyperlipidemia, unspecified; J45.909 Unspecified asthma, uncomplicated; F32.9 Major depressive disorder, single episode, unspecified; F17.220 Nicotine dependence, chewing tobacco, uncomplicated; Z79.4 Long term (current) use of insulin; Z88.1 Allergy status to other antibiotic agents; Z91.19 Patient's noncompliance with other medical treatment and regimen; Z79.899 Other long term (current) drug therapy; Z89.431 Acquired absence of right foot
CPT/HCPCS: 36415; 73723; 80053; 82948; 83036; 85025; 85651; 86140; 87081; A9575; G0378; J0696; J1644; J1815; J1940

== ENCOUNTER 2020-12-15 09:57 | Inpatient (IN) | payer MEDICAID ==
[~2020-12-15] VITALS: Ht 185.4 cm; Wt 143.6 kg
[~2020-12-15 09:57] MED LIST changes: +CEPH-585 PO; -CITA20TA2 PO; +CITA20TA28 PO; +IBUP-1984 PO; -INSU100C10 SQ; +INSU100V11 SQ; +LANTUS SQ; -LANTUS SUBCUT; -LOSA25TA41 PO; +LOSA50TA3 PO; -LURA20TA PO; +LURA40TA3 PO; -METR500T PO; +MULT-1074 PO; -NOR5T PO; -OXYC-150 PO
--- NOTE | 2020-12-15 13:02 | NUR ---
PAGER ID: [phone] MESSAGE: Gricel [phone]- Jhon 225K- Direct admit patient has arrived. Patient requesting pain medication and a diet. Please call for orders.
--- NOTE | 2020-12-15 13:02 | NUR ---
Patient in room [facility] 346. I have received report from Antoine EMT and had the opportunity to ask questions and assume patient care.
[2020-12-15] MEDS: HYDROcodone/acetaminophen 10/325mg tab PO PRN ×2 (13:23→20:41)
--- NOTE | 2020-12-15 13:35 | NUR ---
Dr. Coto at bedside with patient.
[2020-12-15] MEDS ORDERED: magnesium hydroxide 30ml (MOM) UD suspension PO PRN (13:50)
[2020-12-15] MEDS ORDERED: glucagon, human recombinant 1mg kit SUBCUT PRN (13:50)
[2020-12-15] MEDS ORDERED: ondansetron/PF 4mg/2ml inj IV PRN (13:50)
[2020-12-15] MEDS ORDERED: LORazepam 1 MG tablet PO PRN ×2 (13:50→14:00)
[2020-12-15] MEDS ORDERED: mag hydrox/Alum hydrox/simeth 30ml oral suspension PO PRN (13:50)
[2020-12-15] MEDS ORDERED: dextrose 50%-water 50ml dispensing syringe IV PRN ×2 (13:50)
[2020-12-15] MEDS ORDERED: MESSAGE TO PHARMACY PO ONE (13:50)
[2020-12-15] MEDS ORDERED: LORazepam 2 mg/ml vial IV PRN ×2 (13:50→14:00)
[2020-12-15] MEDS ORDERED: dextrose ORAL solution 15 GM/59 ML bottle PO PRN ×2 (13:50)
[2020-12-15] MEDS ORDERED: acetaminophen 325mg tablet PO PRN ×2 (13:50)
--- NOTE | 2020-12-15 13:50 | NUR ---
Spoke with rn delivery told him that Dr. Coto is requesting the patient be seen today before the weekend.
[2020-12-15] MEDS ORDERED: lisinopril 10 MG tablet PO ONE (14:00)
[2020-12-15] MEDS: vancomycin/NS 1 GM ADD-VANTAGE 250 ML X 1 DOSE IV ONE ×2 (14:25→15:21)
[2020-12-15 14:30] VITALS: BP 187/118
--- NOTE | 2020-12-15 14:38 | NUR ---
PAGER ID: [phone] MESSAGE: Aster-Surg [phone] Re: Jhon 962M MRI would like to clarify what you would like to see on images please call Addendum: 12/15/20 at 1441 by Aster Swift RN Rule out osteomyolitis per Dr Coto
[2020-12-15 14:40] LABS: BASOPHILS % (AUTO) 0.5 % (0-1); EOSINOPHILS # (AUTO) 0.4 X10'3 (0-0.9); EOSINOPHILS % (AUTO) 5.2 % (0-6); HEMATOCRIT 26.4 % (42.0-52.0); HEMOGLOBIN 8.8 g/dl (14.0-17.9); MEAN CORPUSCULAR HGB CONC 33.4 g/dL (33.0-36.5); MEAN CORPUSCULAR VOLUME 95.6 FL (78-98); MONOCYTES # (AUTO) 0.7 X10'3 (0-0.9); MONOCYTES % (AUTO) 9.6 % (2-12); NEUTROPHILS # (AUTO) 4.9 X10'3 (1.8-7.7); NEUTROPHILS % (AUTO) 69.7 % (42-75); PLATELET COUNT 419 X10'3 (140-440); RED BLOOD COUNT 2.76 X10'6 (4.70-6.10); RED CELL DISTRIBUTION WIDTH 15.1 % (11.5-14.5)
[2020-12-15] MEDS ORDERED: CITA-311 PO (14:56)
[2020-12-15] MEDS ORDERED: PEG15DRO5 RIGHTEYE (14:56)
[2020-12-15] MEDS ORDERED: DOCU250C96 PO (14:56)
[2020-12-15] MEDS ORDERED: ALBU2.5V13 NEB (14:56)
[2020-12-15] MEDS ORDERED: CLON1PAT15 TOP (14:56)
[2020-12-15] MEDS ORDERED: GABA300C PO (14:56)
[2020-12-15] MEDS ORDERED: FOLI0.4T14 PO (14:56)
[2020-12-15] MEDS ORDERED: ALBU18HF2 INH (14:56)
[2020-12-15] MEDS ORDERED: ATOR20TA66 PO (14:56)
[2020-12-15 15:00] VITALS: BP 190/120
[2020-12-15] MEDS ORDERED: SENN-263 PO (15:02)
[2020-12-15] MEDS ORDERED: MAGN400O6 PO (15:02)
[2020-12-15] MEDS ORDERED: THIA100T70 PO (15:02)
[2020-12-15] MEDS ORDERED: MAGN400T28 PO (15:02)
[2020-12-15] MEDS ORDERED: LOSA25TA41 PO (15:02)
[2020-12-15] MEDS ORDERED: ZINC57OI3 TOP (15:02)
[2020-12-15] MEDS ORDERED: LURA20TA PO (15:02)
[2020-12-15] MEDS ORDERED: INSU100C10 SQ (15:07)
[2020-12-15] MEDS ORDERED: INSU100V9 SQ ×2 (15:07)
[2020-12-15] MEDS ORDERED: ALBUTEROL INHALER 1 PUFF/90 MCG INHALER IH PRN (15:20)
[2020-12-15] MEDS ORDERED: vitamin A & D ointment-NF 1 APPLIC TUBE TP PRN (15:20)
[2020-12-15] MEDS ORDERED: albuterol 2.5 MG/3 ML nebule NEB PRN (15:20)
[2020-12-15] MEDS: normal saline 1000ml 1,000 ML IV SCH (15:22)
[2020-12-15 15:27] LABS: ALANINE AMINOTRANSFERASE 18 U/L (12-78); ALBUMIN 1.7 G/DL (3.4-5.0); ALBUMIN/GLOBULIN RATIO 0.3 (1.1-1.5); ALKALINE PHOSPHATASE 89 IU/L (46-116); ANION GAP 8 (8-16); ASPARTATE AMINO TRANSFERASE 21 U/L (10-37); BILIRUBIN,TOTAL 0.1 MG/DL (0.1-1.0); BLOOD UREA NITROGEN 32 MG/DL (7-18); BUN/CREATININE RATIO 24.2 (5.4-32.0); CHLORIDE 98 MMOL/L (99-107); CREATININE 1.32 MG/DL (0.60-1.10); GLUCOSE 234 MG/DL (70-104); SODIUM 130 MMOL/L (135-145); TOTAL PROTEIN 7.2 G/DL (6.4-8.2); eGFR 58 ML/MIN
[2020-12-15] MEDS ORDERED: zinc oxide ointment 30gm tube TP PRN (15:34)
--- NOTE | 2020-12-15 16:02 | NUR ---
Noted that pt admit with diabetic ulcer, pending H&P at this time. Per [facility] notes pt with partial thickness diabetic ulcers to bilat lower legs. Pt with hx T2DM, pending A1c at this time. Pt on CHO controlled diet, pending documentation of PO intake. Will continue to follow and monitor need for nutrition intervention and DM education pending A1c results. Addendum: 12/15/20 at [address] Amended: Links added.
--- NOTE | 2020-12-15 16:04 | NUR ---
PAGER ID: [phone] MESSAGE: Gabby Surg [phone] Re: 346B Jhon Patient blood pressure elevated 187/118 HR-102 post lisinopril Addendum: 12/15/20 at 1614 by Gabby Dougherty RN Nnamdi called and stated to give the patient losartan now for BP. NS at 70 mL/hr to continue.
[2020-12-15] MEDS ORDERED: losartan 25mg tablet PO ONE (16:20)
--- NOTE | 2020-12-15 16:50 | NUR ---
PAGER ID: [phone] MESSAGE: Aster-Surg [phone] Re: Jhon 346B patient wont fit in MRI machine they recommend bone scan
--- NOTE | 2020-12-15 17:30 | NUR ---
ID: [phone] MESSAGE: Aster-Surg [phone] Re: Jhon 346B unable to obtain IV patients other IV failed please call Addendum: 12/15/20 at 1738 by Aster Swift RN Dr Coto will contact ER doctor and see what options are.
--- NOTE | 2020-12-15 17:41 | NUR ---
Vancomycin 1,000 mg one time dose has not been administered due to loss of IV access. Multiple attempt were made to replace. Dr. Coto aware, she will contact ER doctor for options. Aster VENTURA spoke to the pharmacist, who would like a call back when IV access is gained. She will make vancomycin changes at that time.
--- NOTE | 2020-12-15 18:42 | NUR ---
Problems reprioritized. Patient report given, questions answered & plan of care reviewed with Asa VENTURA.
[2020-12-15] MEDS: VANCOmycin 1250MG/NS 250ml Bag 250 ML IV SCH (19:24)
[2020-12-15] MEDS: heparin, porcine 5000 units/ml vial SQ SCH (19:25)
[2020-12-15] MEDS: insulin Lispro (HumaLOG) vial - multi-dose SQ SCH (19:42)
[2020-12-15] MEDS: gabapentin 300mg capsule PO SCH (20:55)
[2020-12-15] MEDS ORDERED: temazepam 15mg capsule PO PRN (21:00)
[2020-12-15] MEDS: insulin glargine (Lantus) pen - multi-dose SQ SCH (21:00)
[2020-12-15] MEDS: hydrALAZINE 20mg/ml inj. IV PRN (21:02)
[2020-12-15 22:26] VITALS: BP 151/111
[2020-12-16] VITALS: BP 156/102
[2020-12-16] MEDS: normal saline 1000ml 1,000 ML IV SCH ×4 (01:26→17:44)
[2020-12-16] MEDS ORDERED: VANCOmycin 1250MG/NS 250ml Bag 250 ML IV SCH (03:00)
--- NOTE | 2020-12-16 06:15 | NUR ---
Patient in room [facility] 346. I have received report from AUDREY Bray and had the opportunity to ask questions and assume patient care.
[2020-12-16 06:24] LABS: BASOPHILS # (AUTO) 0.1 X10'3 (0-0.2); EOSINOPHILS # (AUTO) 0.3 X10'3 (0-0.9); MEAN CORPUSCULAR HGB CONC 33.9 g/dL (33.0-36.5); MONOCYTES # (AUTO) 0.6 X10'3 (0-0.9)
[2020-12-16 06:27] LABS: BASOPHILS % (AUTO) 1.9 % (0-1); EOSINOPHILS % (AUTO) 5.3 % (0-6); HEMATOCRIT 25.3 % (42.0-52.0); HEMOGLOBIN 8.6 g/dl (14.0-17.9); LYMPHOCYTES % (AUTO) 16.7 % (21-51); MEAN CORPUSCULAR HEMOGLOBIN 32.3 PG (27.0-31.0); MEAN CORPUSCULAR VOLUME 95.3 FL (78-98); MEAN PLATELET VOLUME 7.8 FL (7.4-10.4); MONOCYTES % (AUTO) 10.5 % (2-12); NEUTROPHILS # (AUTO) 3.8 X10'3 (1.8-7.7); NEUTROPHILS % (AUTO) 65.6 % (42-75); PLATELET COUNT 400 X10'3 (140-440); RED BLOOD COUNT 2.65 X10'6 (4.70-6.10); RED CELL DISTRIBUTION WIDTH 15.4 % (11.5-14.5); WHITE BLOOD COUNT 5.8 X10'3 (4.5-11.0)
[2020-12-16 06:30] VITALS: BP 154/104
[2020-12-16 06:42] LABS: ALANINE AMINOTRANSFERASE 18 U/L (12-78); ALBUMIN 1.5 G/DL (3.4-5.0); ALBUMIN/GLOBULIN RATIO 0.3 (1.1-1.5); ALKALINE PHOSPHATASE 74 IU/L (46-116); ANION GAP 5 (8-16); ASPARTATE AMINO TRANSFERASE 15 U/L (10-37); BILIRUBIN,TOTAL 0.1 MG/DL (0.1-1.0); BLOOD UREA NITROGEN 28 MG/DL (7-18); BUN/CREATININE RATIO 26.7 (5.4-32.0); CALCIUM 8.9 MG/DL (8.5-10.1); CHLORIDE 101 MMOL/L (99-107); CHOL/HDL RATIO 2.4 (0.00-4.99); CHOLESTEROL 100 MG/DL (0-200); CREATININE 1.05 MG/DL (0.60-1.10); GLUCOSE 80 MG/DL (70-104); HDL CHOLESTEROL 42 MG/DL (35-60); LDL CHOLESTEROL 44 MG/DL (50-100); POTASSIUM 4.7 MMOL/L (3.5-5.1); SODIUM 132 MMOL/L (135-145); TOTAL PROTEIN 6.3 G/DL (6.4-8.2); TRIGLYCERIDES 103 MG/DL (20-135); eGFR 75 ML/MIN
[2020-12-16] MEDS: VANCOmycin 1250MG/NS 250ml Bag 250 ML IV SCH ×2 (07:21→19:09)
[2020-12-16] MEDS: HYDROcodone/acetaminophen 10/325mg tab PO PRN ×3 (07:22→21:01)
[2020-12-16] MEDS ORDERED: cloNIDine 0.1 MG/24 HOUR patch (7 day patch) TD SCH (08:00)
[2020-12-16] MEDS ORDERED: thiamine 100mg tablet PO SCH (08:00)
[2020-12-16] MEDS: heparin, porcine 5000 units/ml vial SQ SCH ×2 (10:11→19:10)
[2020-12-16] MEDS: CITALOpram 10mg tablet PO SCH (10:11)
[2020-12-16] MEDS: multivitamins, therapeutics tablet PO SCH (10:12)
[2020-12-16] MEDS: pantoprazole 40mg Tablet.DR PO SCH (10:12)
[2020-12-16] MEDS: gabapentin 300mg capsule PO SCH ×3 (10:12→21:01)
[2020-12-16] MEDS: atorvastatin 20mg tablet PO SCH (10:12)
[2020-12-16] MEDS: losartan 25mg tablet PO SCH (10:12)
[2020-12-16] MEDS: thiamine 100mg tablet PO SCH (10:12)
[2020-12-16] MEDS: folic acid 1mg tablet PO SCH (10:12)
[2020-12-16] MEDS: lurasidone 20mg tablet PO SCH (10:13)
[2020-12-16] MEDS: nicotine 14mg patch - 24hr TD SCH (10:14)
[2020-12-16 11:00] VITALS: BP 177/109
[2020-12-16] MEDS: hydrALAZINE 20mg/ml inj. IV PRN (11:50)
[2020-12-16 13:30] VITALS: BP 159/107
--- NOTE | 2020-12-16 15:23 | NUR ---
DM consult: Pt with A1c >14.0% this admit. Noted that A1c slowly trending up since 2016 per records. Pt seen at bedside for written and verbal protein and DM educations. Pt states he sees an MD at least once a month for DM management and states he doesn't check his blood sugars because he is always losing/misplacing glucometer, though states he does know where it currently is at home. Pt initially reports taking his medications per rx without issues and states that mental health(?) in [place] helps him manage his medications, however then states that he doesn't always take his HS medications because he falls asleep. RD inquired about insulin dosing with meals given unknown BG levels, pt agrees that he is likely not dosing accurately. RD strongly encouraged pt to f/u with his MD regarding DM management as well as to start checking his BG levels more frequently. Pt expresses desire to acquire CGM and states he will d/w his MD. Pt states he used to monitor his CHO intake and check nutrition facts label however now doesn't do that very often. Pt mentions high EtOH intake for pain management, stating he would drink a bottle of vodka over the span of two days, though reports he has cut back on drinking. Pt receiving routine Thiamine, Folic acid, and MVI. supervisor ship maintenance services has already been consulted. RD encouraged CHO intake in moderation for better DM management as well as high protein intake for satiety and wound healing. Pt verbalized understanding to educations provided. RD contact information provided. Pt endorses a good appetite which is evident with 100% PO intake on CHO controlled diet. Pt agrees to double protein TID for satiety, d/w dietary. Pt denies food allergies or difficulty swallowing and reports some difficulty chewing on the right side of his mouth though denies need for texture modification. Pt denies constipation/diarrhea. LBM [employer] on 12/14, not receiving routine bowel care. Pt denies intervention at this time. Will continue to follow. Addendum: 12/16/20 at [address] Amended: Links added.
--- NOTE | 2020-12-16 18:05 | NUR ---
Problems reprioritized. Patient report given, questions answered & plan of care reviewed with AUDREY Chan.
--- NOTE | 2020-12-16 18:05 | NUR ---
Patient in room [facility] 346. I have received report from Luciana VENTURA and had the opportunity to ask questions and assume patient care.
[2020-12-16] MEDS: lactobacillus rhamnosus 10,000 MMU CELLS/CAPSULE PO SCH (19:09)
[2020-12-16] MEDS: insulin Lispro (HumaLOG) vial - multi-dose SQ SCH (19:19)
[2020-12-16 20:20] VITALS: BP 151/102
[2020-12-16] MEDS: insulin glargine (Lantus) pen - multi-dose SQ SCH (21:05)
[2020-12-17] VITALS: BP 143/84
[2020-12-17] MEDS: normal saline 1000ml 1,000 ML IV SCH (05:10)
--- NOTE | 2020-12-17 06:10 | NUR ---
Patient in room [facility] 346. I have received report from AUDREY Chan and had the opportunity to ask questions and assume patient care.
--- NOTE | 2020-12-17 06:15 | NUR ---
Problems reprioritized. Patient report given, questions answered & plan of care reviewed with Lucinaa RN.
[2020-12-17] MEDS ORDERED: VANCOMYCIN LEVEL IV ONE (06:30)
[2020-12-17 07:00] VITALS: BP 118/70
[2020-12-17 07:30] LABS: ALBUMIN 1.5 G/DL (3.4-5.0); ANION GAP 4 (8-16); BILIRUBIN,TOTAL 0.1 MG/DL (0.1-1.0); BLOOD UREA NITROGEN 29 MG/DL (7-18); BUN/CREATININE RATIO 24.2 (5.4-32.0); CALCIUM 8.7 MG/DL (8.5-10.1); CHLORIDE 101 MMOL/L (99-107); GLUCOSE 119 MG/DL (70-104); POTASSIUM 5.1 MMOL/L (3.5-5.1); SODIUM 131 MMOL/L (135-145); TOTAL CARBON DIOXIDE 25.8 MMOL/L (24-32); TOTAL PROTEIN 6.1 G/DL (6.4-8.2); eGFR 65 ML/MIN
[2020-12-17 07:31] LABS: ALANINE AMINOTRANSFERASE 17 U/L (12-78); ALBUMIN/GLOBULIN RATIO 0.3 (1.1-1.5); ALKALINE PHOSPHATASE 76 IU/L (46-116); ASPARTATE AMINO TRANSFERASE 18 U/L (10-37)
[2020-12-17 07:43] LABS: BASOPHILS # (AUTO) 0.1 X10'3 (0-0.2); EOSINOPHILS # (AUTO) 0.3 X10'3 (0-0.9); MEAN CORPUSCULAR HEMOGLOBIN 32.2 PG (27.0-31.0); MEAN CORPUSCULAR HGB CONC 33.7 g/dL (33.0-36.5); NEUTROPHILS # (AUTO) 2.7 X10'3 (1.8-7.7)
[2020-12-17 07:45] LABS: BASOPHILS % (AUTO) 3.3 % (0-1); EOSINOPHILS % (AUTO) 6.6 % (0-6); HEMATOCRIT 23.7 % (42.0-52.0); LYMPHOCYTES # (AUTO) 0.8 X10'3 (1.1-4.8); LYMPHOCYTES % (AUTO) 18.1 % (21-51); MEAN CORPUSCULAR VOLUME 95.6 FL (78-98); MEAN PLATELET VOLUME 8.2 FL (7.4-10.4); MONOCYTES # (AUTO) 0.5 X10'3 (0-0.9); PLATELET COUNT 358 X10'3 (140-440); RED BLOOD COUNT 2.48 X10'6 (4.70-6.10); RED CELL DISTRIBUTION WIDTH 15.3 % (11.5-14.5); WHITE BLOOD COUNT 4.5 X10'3 (4.5-11.0)
[2020-12-17] MEDS: lactobacillus rhamnosus 10,000 MMU CELLS/CAPSULE PO SCH ×2 (08:38→21:59)
[2020-12-17] MEDS: folic acid 1mg tablet PO SCH (08:39)
[2020-12-17] MEDS: losartan 25mg tablet PO SCH (08:39)
[2020-12-17] MEDS: pantoprazole 40mg Tablet.DR PO SCH (08:39)
[2020-12-17] MEDS: lurasidone 20mg tablet PO SCH (08:39)
[2020-12-17] MEDS: gabapentin 300mg capsule PO SCH ×3 (08:39→21:51)
[2020-12-17] MEDS: CITALOpram 10mg tablet PO SCH (08:39)
[2020-12-17] MEDS: atorvastatin 20mg tablet PO SCH (08:39)
[2020-12-17] MEDS: thiamine 100mg tablet PO SCH (08:39)
[2020-12-17] MEDS: multivitamins, therapeutics tablet PO SCH (08:39)
[2020-12-17] MEDS: nicotine 14mg patch - 24hr TD SCH (08:40)
[2020-12-17] MEDS: HYDROcodone/acetaminophen 10/325mg tab PO PRN ×2 (08:40→17:21)
[2020-12-17] MEDS: insulin Lispro (HumaLOG) vial - multi-dose SQ SCH ×3 (08:49→19:23)
[2020-12-17 09:52] LABS: OCCULT BLOOD STOOL NEGATIVE (Neg)
[2020-12-17] MEDS: vancomycin/NS 1 GM ADD-VANTAGE 250 ML IV SCH ×2 (10:26→21:51)
[2020-12-17 11:00] VITALS: BP 151/96
--- NOTE | 2020-12-17 17:30 | NUR ---
Dr Coto notified of BLE & pedal edema & abdomen are all getting larger w/fluid retention. IVF DC'd.
--- NOTE | 2020-12-17 18:05 | NUR ---
Problems reprioritized. Patient report given, questions answered & plan of care reviewed with AUDREY Phelan.
--- NOTE | 2020-12-17 18:30 | NUR ---
Patient in room [facility] 346. I have received report from EDER and had the opportunity to ask questions and assume patient care. ASSUMED CARE OF PT WITH RN STUDENT PHAM Argueta
[2020-12-17 19:00] VITALS: BP 170/107
[2020-12-17] MEDS: hydrALAZINE 20mg/ml inj. IV PRN (20:15)
[2020-12-17] MEDS: insulin glargine (Lantus) pen - multi-dose SQ SCH (21:50)
[2020-12-17 23:00] VITALS: BP 148/89
--- NOTE | 2020-12-18 03:57 | NUR ---
Student documentation: I have reviewed and agree with all interventions, assessments performed and documented by PHAM Aguilar Medication Administration: For this medication-pass time frame, all medication were reviewed, dispensed, administered and documented per hospital policy by PHAM Argueta
[2020-12-18] MEDS: HYDROcodone/acetaminophen 10/325mg tab PO PRN ×2 (04:39→22:23)
[2020-12-18 06:00] LABS: BASOPHILS # (AUTO) 0.1 X10'3 (0-0.2); EOSINOPHILS # (AUTO) 0.3 X10'3 (0-0.9); HEMOGLOBIN 7.8 g/dl (14.0-17.9); LYMPHOCYTES # (AUTO) 0.8 X10'3 (1.1-4.8); MEAN PLATELET VOLUME 7.6 FL (7.4-10.4); MONOCYTES # (AUTO) 0.6 X10'3 (0-0.9)
[2020-12-18 06:04] LABS: BASOPHILS % (AUTO) 2.9 % (0-1); EOSINOPHILS % (AUTO) 7.6 % (0-6); HEMATOCRIT 23.5 % (42.0-52.0); LYMPHOCYTES % (AUTO) 19.5 % (21-51); MEAN CORPUSCULAR HEMOGLOBIN 31.9 PG (27.0-31.0); MEAN CORPUSCULAR HGB CONC 33.1 g/dL (33.0-36.5); MEAN CORPUSCULAR VOLUME 96.2 FL (78-98); NEUTROPHILS # (AUTO) 2.2 X10'3 (1.8-7.7); PLATELET COUNT 346 X10'3 (140-440); RED BLOOD COUNT 2.44 X10'6 (4.70-6.10); RED CELL DISTRIBUTION WIDTH 15.2 % (11.5-14.5)
[2020-12-18 06:24] LABS: ALANINE AMINOTRANSFERASE 14 U/L (12-78); ALBUMIN 1.6 G/DL (3.4-5.0); ANION GAP 7 (8-16); ASPARTATE AMINO TRANSFERASE 22 U/L (10-37); BILIRUBIN,TOTAL 0.2 MG/DL (0.1-1.0); BLOOD UREA NITROGEN 29 MG/DL (7-18); CALCIUM 8.5 MG/DL (8.5-10.1); CHLORIDE 101 MMOL/L (99-107); GLUCOSE 135 MG/DL (70-104); POTASSIUM 5.5 MMOL/L (3.5-5.1); SODIUM 132 MMOL/L (135-145)
--- NOTE | 2020-12-18 06:28 | NUR ---
Problems reprioritized. Patient report given, questions answered & plan of care reviewed with
[2020-12-18 06:53] LABS: ALBUMIN/GLOBULIN RATIO 0.3 (1.1-1.5); ALKALINE PHOSPHATASE 84 IU/L (46-116); BUN/CREATININE RATIO 22.8 (5.4-32.0); CREATININE 1.27 MG/DL (0.60-1.10); TOTAL PROTEIN 6.2 G/DL (6.4-8.2); eGFR 61 ML/MIN
[2020-12-18 06:56] VITALS: BP 126/70
[2020-12-18] MEDS: losartan 25mg tablet PO SCH (07:57)
[2020-12-18] MEDS: lactobacillus rhamnosus 10,000 MMU CELLS/CAPSULE PO SCH ×2 (07:57→20:42)
[2020-12-18] MEDS: pantoprazole 40mg Tablet.DR PO SCH (07:57)
[2020-12-18] MEDS: atorvastatin 20mg tablet PO SCH (07:57)
[2020-12-18] MEDS: CITALOpram 10mg tablet PO SCH (07:57)
[2020-12-18] MEDS: gabapentin 300mg capsule PO SCH ×3 (07:58→20:42)
[2020-12-18] MEDS: folic acid 1mg tablet PO SCH (07:58)
[2020-12-18] MEDS: multivitamins, therapeutics tablet PO SCH (07:58)
[2020-12-18] MEDS: thiamine 100mg tablet PO SCH (07:58)
[2020-12-18] MEDS: lurasidone 20mg tablet PO SCH (07:59)
[2020-12-18] MEDS: nicotine 14mg patch - 24hr TD SCH (07:59)
[2020-12-18] MEDS: morphine 2 MG/ML inj. syringe IV PRN (08:01)
--- NOTE | 2020-12-18 09:00 | NUR ---
PAGER ID: [phone] MESSAGE: Trevin Ferreira 346B Pt. tachy in low 100s, and K lab for today =5.5 Flor 1071
[2020-12-18] MEDS: vancomycin/NS 1 GM ADD-VANTAGE 250 ML IV SCH (09:51)
[2020-12-18] MEDS: insulin Lispro (HumaLOG) vial - multi-dose SQ SCH ×3 (09:56→18:25)
[2020-12-18 11:00] VITALS: BP 137/90
[2020-12-18] MEDS ORDERED: chlorhexidine gluc 0.4% **topical ** 120ml btl. TP ONE (12:00)
--- NOTE | 2020-12-18 13:04 | NUR ---
MD notified of potassium 5.5 and slight tachycardia in low 100's. See new orders.
[2020-12-18] MEDS ORDERED: sodium polystyrene sulfonate 15gm/60ml oral suspension PO ONE (13:05)
[2020-12-18] MEDS: CefTRIAXone 2gm/D5W 50ml BAG 50 ML IV SCH (16:40)
--- NOTE | 2020-12-18 17:51 | NUR ---
I have reviewed and agree with all medications administered and interventions performed by [facility] RN Student Shana.
[2020-12-18 18:00] VITALS: BP 159/104
--- NOTE | 2020-12-18 18:23 | NUR ---
Problems reprioritized. Patient report given, questions answered & plan of care reviewed with to RNZhane.
--- NOTE | 2020-12-18 18:30 | NUR ---
Patient in room [facility]LIE 346. I have received report from DOMENICO and had the opportunity to ask questions and assume patient care. ASSUMED CARE OF PT WITH RN STUDENT PHAM Argueta
[2020-12-18] MEDS ORDERED: acyclovir 200 MG capsule PO SCH (20:00)
[2020-12-18] MEDS: insulin glargine (Lantus) pen - multi-dose SQ SCH (20:37)
[2020-12-18] MEDS: valacyclovir 500mg tablet PO SCH (20:42)
[2020-12-18] MEDS ORDERED: VANCOMYCIN LEVEL IV ONE (21:30)
[2020-12-18] MEDS: hydrALAZINE 20mg/ml inj. IV PRN (23:13)
--- NOTE | 2020-12-18 23:30 | NUR ---
Dressing on L lower extremity saturated with serous drainage. New dressing applied. Xeroform, ABD pads, secured with kerlix wrap and tape
[2020-12-18 23:49] VITALS: BP 173/96
--- NOTE | 2020-12-19 01:29 | NUR ---
Student documentation: I have reviewed and agree with all interventions, assessments performed and documented by PHAM Argueta Problems reprioritized. Student Medication Administration: For this medication-pass time frame, all medication were reviewed, dispensed, administered and documented per hospital policy by PHAM Argueta
--- NOTE | 2020-12-19 06:38 | NUR ---
Problems reprioritized. Patient report given, questions answered & plan of care reviewed with
--- NOTE | 2020-12-19 07:00 | NUR ---
Patient in room CHARLIE 346. I have received report from Zhane VENTURA and had the opportunity to ask questions and assume patient care.
--- NOTE | 2020-12-19 07:06 | NUR ---
Patient in room CHARLIE 346. I have received report from NANCY VENTURA and had the opportunity to ask questions and assume patient care.
[2020-12-19 07:39] LABS: BASOPHILS # (AUTO) 0.1 X10'3 (0-0.2); EOSINOPHILS # (AUTO) 0.3 X10'3 (0-0.9); HEMOGLOBIN 7.4 g/dl (14.0-17.9); LYMPHOCYTES # (AUTO) 0.8 X10'3 (1.1-4.8); MEAN PLATELET VOLUME 7.9 FL (7.4-10.4)
[2020-12-19 07:42] LABS: BASOPHILS % (AUTO) 3.2 % (0-1); EOSINOPHILS % (AUTO) 8.2 % (0-6); LYMPHOCYTES % (AUTO) 20.5 % (21-51); MEAN CORPUSCULAR HEMOGLOBIN 32.4 PG (27.0-31.0); MEAN CORPUSCULAR HGB CONC 33.8 g/dL (33.0-36.5); MEAN CORPUSCULAR VOLUME 95.7 FL (78-98); MONOCYTES # (AUTO) 0.6 X10'3 (0-0.9); MONOCYTES % (AUTO) 16.5 % (2-12); NEUTROPHILS % (AUTO) 51.6 % (42-75); PLATELET COUNT 344 X10'3 (140-440); RED BLOOD COUNT 2.28 X10'6 (4.70-6.10); RED CELL DISTRIBUTION WIDTH 14.9 % (11.5-14.5); WHITE BLOOD COUNT 3.9 X10'3 (4.5-11.0)
[2020-12-19 07:49] LABS: HEMATOCRIT 21.8 % (42.0-52.0)
[2020-12-19 08:00] VITALS: BP 134/93
[2020-12-19] MEDS: valacyclovir 500mg tablet PO SCH (08:05)
[2020-12-19] MEDS: lurasidone 20mg tablet PO SCH (08:05)
[2020-12-19] MEDS: multivitamins, therapeutics tablet PO SCH (08:05)
[2020-12-19] MEDS: lactobacillus rhamnosus 10,000 MMU CELLS/CAPSULE PO SCH ×2 (08:05→20:06)
[2020-12-19] MEDS: atorvastatin 20mg tablet PO SCH (08:05)
[2020-12-19] MEDS: folic acid 1mg tablet PO SCH (08:05)
[2020-12-19] MEDS: pantoprazole 40mg Tablet.DR PO SCH (08:05)
[2020-12-19] MEDS: CITALOpram 10mg tablet PO SCH (08:05)
[2020-12-19] MEDS: gabapentin 300mg capsule PO SCH ×3 (08:06→20:07)
[2020-12-19] MEDS: losartan 25mg tablet PO SCH (08:06)
[2020-12-19] MEDS: thiamine 100mg tablet PO SCH (08:06)
[2020-12-19] MEDS: nicotine 14mg patch - 24hr TD SCH (08:08)
[2020-12-19] MEDS: CefTRIAXone 2gm/D5W 50ml BAG 50 ML IV SCH (08:09)
--- NOTE | 2020-12-19 08:15 | NUR ---
Initial: Pt admit with BLE cellulitis/DM ulcers. Per [facility]OC note pt with full thickness DM ulcer to bilateral lower legs. Pt on a CHO controlled diet documented with 100% PO intake while receiving double protein TID. No further nutrition intervention warranted at this time. Pt has RD contact information and has been encouraged to reach out for any further food preferences. LB 12/18. Will continue to follow. Recommendations: 1) Continue CHO controlled diet 2) Doubles eggs WB, double meat BIDLD 3) Bowel care per rx 4) Scaled weights per rx Addendum: 12/19/20 at [address] Amended: Links added.
[2020-12-19 08:19] LABS: ALANINE AMINOTRANSFERASE 20 U/L (12-78); ALBUMIN 1.7 G/DL (3.4-5.0); ALBUMIN/GLOBULIN RATIO 0.4 (1.1-1.5); ALKALINE PHOSPHATASE 98 IU/L (46-116); ANION GAP 7 (8-16); ASPARTATE AMINO TRANSFERASE 21 U/L (10-37); BILIRUBIN,TOTAL 0.2 MG/DL (0.1-1.0); BLOOD UREA NITROGEN 28 MG/DL (7-18); BUN/CREATININE RATIO 20.1 (5.4-32.0); CALCIUM 8.6 MG/DL (8.5-10.1); CHLORIDE 101 MMOL/L (99-107); CREATININE 1.39 MG/DL (0.60-1.10); GLUCOSE 122 MG/DL (70-104); POTASSIUM 5.1 MMOL/L (3.5-5.1); SODIUM 133 MMOL/L (135-145); TOTAL CARBON DIOXIDE 24.9 MMOL/L (24-32); TOTAL PROTEIN 6.3 G/DL (6.4-8.2); eGFR 55 ML/MIN
[2020-12-19 08:52] LABS: TOTAL CELLS COUNTED 100
[2020-12-19 08:53] LABS: LARGE PLATELETS FEW; PLATELET ESTIMATE NORMAL
[2020-12-19] MEDS: insulin Lispro (HumaLOG) vial - multi-dose SQ SCH ×3 (09:53→18:30)
[2020-12-19 11:00] VITALS: BP 130/82
[2020-12-19 11:36] LABS: HEMATOCRIT 22.6 % (42.0-52.0); HEMOGLOBIN 7.4 g/dl (14.0-17.9); MEAN CORPUSCULAR HEMOGLOBIN 31.5 PG (27.0-31.0); MEAN CORPUSCULAR HGB CONC 32.6 g/dL (33.0-36.5); MEAN CORPUSCULAR VOLUME 96.7 FL (78-98); MEAN PLATELET VOLUME 7.5 FL (7.4-10.4); PLATELET COUNT 360 X10'3 (140-440); RED BLOOD COUNT 2.34 X10'6 (4.70-6.10); RED CELL DISTRIBUTION WIDTH 14.9 % (11.5-14.5); WHITE BLOOD COUNT 4.1 X10'3 (4.5-11.0)
[2020-12-19 11:58] LABS: % IRON SATURATION 11 % (11-46); IRON 20 UG/DL (53-167); TOTAL IRON BINDING CAPACITY 180 UG/DL (259-388)
[2020-12-19 12:03] LABS: FERRITIN 199 NG/ML (26-388)
[2020-12-19] MEDS: sodium ferric gluc complex inj 125 MG in normal saline 100ml IV soln 90 ML IV SCH (12:04)
[2020-12-19] MEDS: HYDROcodone/acetaminophen 10/325mg tab PO PRN ×2 (12:59→20:08)
--- NOTE | 2020-12-19 14:00 | NUR ---
patient seen by wound care wounds redressed. Seen by Dr Pablo and DR Najera. was for groshone placement, but DC per Dr Najera. see note. Is for PICC placement when staff available. No c/o pain Labs noted by Dr Pablo.
--- NOTE | 2020-12-19 18:10 | NUR ---
Patient in room CHARLIE 346. I have received report from student services dean Enrique and RN Carolin and had the opportunity to ask questions and assume patient care.
--- NOTE | 2020-12-19 18:20 | NUR ---
Problems reprioritized. Patient report given, questions answered & plan of care reviewed with Cici VENTURA.
[2020-12-19 18:45] VITALS: BP 175/118
--- NOTE | 2020-12-19 18:59 | NUR ---
Discussed with RN HR of 103, would like hydralazine to be administered for BP of 175/118.
[2020-12-19] MEDS: hydrALAZINE 20mg/ml inj. IV PRN (19:07)
[2020-12-19 20:01] VITALS: BP 170/115
[2020-12-19] MEDS: insulin glargine (Lantus) pen - multi-dose SQ SCH (21:01)
[2020-12-19 21:18] VITALS: BP 172/112
[2020-12-19] MEDS: morphine 2 MG/ML inj. syringe IV PRN (21:27)
[2020-12-20] VITALS: BP 153/97
[2020-12-20] MEDS: hyDRALAzine 10mg tablet PO SCH ×4 (00:13→22:12)
--- NOTE | 2020-12-20 06:20 | NUR ---
Problems reprioritized. Patient report given, questions answered & plan of care reviewed with Jennifer VENTURA.
[2020-12-20 06:41] LABS: EOSINOPHILS # (AUTO) 0.3 X10'3 (0-0.9); LYMPHOCYTES # (AUTO) 0.8 X10'3 (1.1-4.8); MEAN CORPUSCULAR HGB CONC 33.5 g/dL (33.0-36.5); NEUTROPHILS % (AUTO) 57.3 % (42-75); WHITE BLOOD COUNT 4.3 X10'3 (4.5-11.0)
[2020-12-20 06:43] LABS: BASOPHILS # (AUTO) 0.2 X10'3 (0-0.2); EOSINOPHILS % (AUTO) 7.4 % (0-6); HEMOGLOBIN 7.2 g/dl (14.0-17.9); LYMPHOCYTES % (AUTO) 19.3 % (21-51); MEAN CORPUSCULAR HEMOGLOBIN 32.1 PG (27.0-31.0); MEAN CORPUSCULAR VOLUME 95.9 FL (78-98); MEAN PLATELET VOLUME 7.9 FL (7.4-10.4); MONOCYTES # (AUTO) 0.5 X10'3 (0-0.9); MONOCYTES % (AUTO) 12.4 % (2-12); NEUTROPHILS # (AUTO) 2.5 X10'3 (1.8-7.7); PLATELET COUNT 355 X10'3 (140-440); RED BLOOD COUNT 2.25 X10'6 (4.70-6.10)
[2020-12-20 06:47] LABS: ALANINE AMINOTRANSFERASE 21 U/L (12-78); ALBUMIN 1.6 G/DL (3.4-5.0); ALBUMIN/GLOBULIN RATIO 0.4 (1.1-1.5); ALKALINE PHOSPHATASE 101 IU/L (46-116); ANION GAP 7 (8-16); ASPARTATE AMINO TRANSFERASE 23 U/L (10-37); BILIRUBIN,TOTAL 0.2 MG/DL (0.1-1.0); BLOOD UREA NITROGEN 31 MG/DL (7-18); BUN/CREATININE RATIO 23.1 (5.4-32.0); CALCIUM 8.7 MG/DL (8.5-10.1); CHLORIDE 102 MMOL/L (99-107); CREATININE 1.34 MG/DL (0.60-1.10); GLUCOSE 149 MG/DL (70-104); POTASSIUM 5.2 MMOL/L (3.5-5.1); SODIUM 134 MMOL/L (135-145); TOTAL CARBON DIOXIDE 25.2 MMOL/L (24-32); TOTAL PROTEIN 6.1 G/DL (6.4-8.2); eGFR 57 ML/MIN
[2020-12-20 06:48] LABS: BASOPHILS % (AUTO) 3.2 % (0-1); HEMATOCRIT 21.6 % (42.0-52.0)
--- NOTE | 2020-12-20 06:50 | NUR ---
Patient in room CHARLIE 346. I have received report from Cici VENTURA and had the opportunity to ask questions and assume patient care.
--- NOTE | 2020-12-20 07:11 | NUR ---
PAGER ID: [phone] MESSAGE: re: Trevin Ferreira, Room 346B critical H/H 7.2/21.6 Orders? thank you, Jennifer Med/Surg [phone] Will continue to monitor.
--- NOTE | 2020-12-20 07:38 | NUR ---
PAGER ID: [phone] MESSAGE: re: Trevin Ferreira, Room 346B critical H/H 7.2/21.6 BP132/76, HR-96 Orders? thank you, Jennifer Med/Surg [phone] will continue to monitor
[2020-12-20] MEDS: CITALOpram 10mg tablet PO SCH (07:49)
[2020-12-20] MEDS: thiamine 100mg tablet PO SCH (07:49)
[2020-12-20] MEDS: lurasidone 20mg tablet PO SCH (07:49)
[2020-12-20] MEDS: lactobacillus rhamnosus 10,000 MMU CELLS/CAPSULE PO SCH ×2 (07:49→20:23)
[2020-12-20] MEDS: gabapentin 300mg capsule PO SCH ×3 (07:50→20:23)
[2020-12-20] MEDS: atorvastatin 20mg tablet PO SCH (07:50)
[2020-12-20] MEDS: folic acid 1mg tablet PO SCH (07:50)
[2020-12-20] MEDS: pantoprazole 40mg Tablet.DR PO SCH (07:50)
[2020-12-20] MEDS: CefTRIAXone 2gm/D5W 50ml BAG 50 ML IV SCH (07:50)
[2020-12-20] MEDS: losartan 25mg tablet PO SCH (07:50)
[2020-12-20] MEDS: multivitamins, therapeutics tablet PO SCH (07:50)
[2020-12-20] MEDS: nicotine 14mg patch - 24hr TD SCH (07:51)
[2020-12-20 08:00] VITALS: BP 132/76
[2020-12-20] MEDS: sodium ferric gluc complex inj 125 MG in normal saline 100ml IV soln 90 ML IV SCH (09:26)
[2020-12-20] MEDS: insulin Lispro (HumaLOG) vial - multi-dose SQ SCH ×2 (09:31→14:31)
[2020-12-20 12:00] VITALS: BP 131/87
[2020-12-20] MEDS: HYDROcodone/acetaminophen 10/325mg tab PO PRN ×2 (12:32→20:30)
--- NOTE | 2020-12-20 12:39 | NUR ---
Pt has denied need for pain meds this a.m. reporting pain to this RN 3 or less to BLE and back. He now reports pain 7/10 to lower back and some chronic pins and needles to BLE/feet. Browning given as ordered. Will continue to monitor.
--- NOTE | 2020-12-20 14:30 | NUR ---
Pt received tray late and just finished eating lunch, Humalog given as ordered.
[2020-12-20 16:30] VITALS: BP 160/100
[2020-12-20] MEDS ORDERED: potassium Cl 20 mEq SR tablet PO PRN ×2 (17:40)
[2020-12-20] MEDS ORDERED: magnesium 4gm in 100ml NS 100 ML IV PRN (17:40)
[2020-12-20] MEDS ORDERED: potassium Cl 40MEQ/1/2NS 520ml 520 ML IV PRN (17:40)
[2020-12-20] MEDS ORDERED: sodium polystyrene sulfonate 15gm/60ml oral suspension PO ONE (17:40)
[2020-12-20] MEDS ORDERED: magnesium Cl slow-release 64mg tablet PO PRN (17:40)
[2020-12-20 18:00] VITALS: BP 162/98
--- NOTE | 2020-12-20 18:15 | NUR ---
Patient in room CHARLIE 346. I have received report from AUDREY Ledezma and had the opportunity to ask questions and assume patient care.
--- NOTE | 2020-12-20 18:29 | NUR ---
Problems reprioritized. Patient report given, questions answered & plan of care reviewed with Yesi VENTURA.
[2020-12-20] MEDS: K and/or MAG REPLACEMENT MC SCH (20:00)
[2020-12-20] MEDS: insulin glargine (Lantus) pen - multi-dose SQ SCH (22:01)
--- NOTE | 2020-12-20 22:41 | NUR ---
Pt requested bath for tomorrow stating, "it's getting pretty late." Will inform day shift nurse.
[2020-12-21] VITALS: BP 174/111
[2020-12-21 01:20] VITALS: BP 152/96
[2020-12-21 04:45] VITALS: BP 140/82
[2020-12-21 05:49] LABS: EOSINOPHILS # (AUTO) 0.3 X10'3 (0-0.9); EOSINOPHILS % (AUTO) 7.1 % (0-6); LYMPHOCYTES # (AUTO) 0.9 X10'3 (1.1-4.8); WHITE BLOOD COUNT 4.4 X10'3 (4.5-11.0)
[2020-12-21 05:52] LABS: BASOPHILS # (AUTO) 0.1 X10'3 (0-0.2); BASOPHILS % (AUTO) 3.2 % (0-1); HEMOGLOBIN 7.3 g/dl (14.0-17.9); MEAN CORPUSCULAR HEMOGLOBIN 31.6 PG (27.0-31.0); MEAN CORPUSCULAR HGB CONC 33.3 g/dL (33.0-36.5); MEAN CORPUSCULAR VOLUME 94.8 FL (78-98); MEAN PLATELET VOLUME 8.2 FL (7.4-10.4); MONOCYTES # (AUTO) 0.6 X10'3 (0-0.9); MONOCYTES % (AUTO) 12.8 % (2-12); NEUTROPHILS # (AUTO) 2.5 X10'3 (1.8-7.7); NEUTROPHILS % (AUTO) 56.9 % (42-75); PLATELET COUNT 370 X10'3 (140-440); RED CELL DISTRIBUTION WIDTH 15.2 % (11.5-14.5)
[2020-12-21 05:54] LABS: ALANINE AMINOTRANSFERASE 26 U/L (12-78); ALBUMIN 1.8 G/DL (3.4-5.0); ALBUMIN/GLOBULIN RATIO 0.4 (1.1-1.5); ALKALINE PHOSPHATASE 114 IU/L (46-116); ANION GAP 5 (8-16); ASPARTATE AMINO TRANSFERASE 27 U/L (10-37); BILIRUBIN,TOTAL 0.1 MG/DL (0.1-1.0); BLOOD UREA NITROGEN 28 MG/DL (7-18); BUN/CREATININE RATIO 22.6 (5.4-32.0); CALCIUM 8.6 MG/DL (8.5-10.1); CHLORIDE 101 MMOL/L (99-107); CREATININE 1.24 MG/DL (0.60-1.10); GLUCOSE 188 MG/DL (70-104); MAGNESIUM 1.6 MG/DL (1.5-2.4); PHOSPHORUS 5.2 MG/DL (2.3-4.5); POTASSIUM 4.9 MMOL/L (3.5-5.1); SODIUM 132 MMOL/L (135-145); TOTAL CARBON DIOXIDE 26.1 MMOL/L (24-32); TOTAL PROTEIN 6.3 G/DL (6.4-8.2); eGFR 62 ML/MIN
[2020-12-21 05:57] LABS: HEMATOCRIT 21.8 % (42.0-52.0)
--- NOTE | 2020-12-21 05:58 | NUR ---
PAGER ID: [phone] MESSAGE: Patient Trevin Ferreira has a critically low Hct of 21.8. Hct yest was 21.6. Med/Surg Cordelia [id number]
--- NOTE | 2020-12-21 06:42 | NUR ---
Problems reprioritized. Patient report given, questions answered & plan of care reviewed with AUDREY Ray.
[2020-12-21 07:23] VITALS: BP 169/96
[2020-12-21] MEDS: atorvastatin 20mg tablet PO SCH (07:49)
[2020-12-21] MEDS: CefTRIAXone 2gm/D5W 50ml BAG 50 ML IV SCH (07:49)
[2020-12-21] MEDS: pantoprazole 40mg Tablet.DR PO SCH (07:50)
[2020-12-21] MEDS: folic acid 1mg tablet PO SCH (07:51)
[2020-12-21] MEDS: losartan 25mg tablet PO SCH (07:51)
[2020-12-21] MEDS: multivitamins, therapeutics tablet PO SCH (07:51)
[2020-12-21] MEDS: gabapentin 300mg capsule PO SCH ×2 (07:51→14:31)
[2020-12-21] MEDS: hyDRALAzine 10mg tablet PO SCH (07:51)
[2020-12-21] MEDS: CITALOpram 10mg tablet PO SCH (07:51)
[2020-12-21] MEDS: lurasidone 20mg tablet PO SCH (07:52)
[2020-12-21] MEDS: nicotine 14mg patch - 24hr TD SCH (07:55)
[2020-12-21] MEDS: K and/or MAG REPLACEMENT MC SCH (08:00)
--- NOTE | 2020-12-21 08:31 | NUR ---
PAGER ID: [phone] MESSAGE: Trevin Ferreira 346B Tani Garza MD aware critical htc. = 7.3/21.8 trending upward from 7.2/21.6. Pt receiving IV iron already. Flor [id number]
[2020-12-21] MEDS: sodium ferric gluc complex inj 125 MG in normal saline 100ml IV soln 90 ML IV SCH (09:19)
[2020-12-21] MEDS: insulin Lispro (HumaLOG) vial - multi-dose SQ SCH ×2 (09:32→14:38)
[2020-12-21] MEDS: lactobacillus rhamnosus 10,000 MMU CELLS/CAPSULE PO SCH (09:33)
[2020-12-21] MEDS: thiamine 100mg tablet PO SCH (09:33)
[2020-12-21] MEDS: hydrALAZINE 20mg/ml inj. IV PRN (09:58)
[2020-12-21] MEDS: HYDROcodone/acetaminophen 10/325mg tab PO PRN (09:58)
--- NOTE | 2020-12-21 10:40 | NUR ---
Spoke with CM. Plans are not to discharge to [facility] but to discharge home and go to [facility]. Pt. having HTN issues, scrotal edema, unable to provide his own pericare (pericare provided), has BLE wounds that will need to be cared for and pt. needs carefully controlled diabetes in which he show poor feedback for independent administration and diet control. Pt. has an abnormal phos and sodium lab which RN will discuss with MD on rounding.
[2020-12-21 11:00] VITALS: BP 145/90
--- NOTE | 2020-12-21 11:49 | NUR ---
Double check done on morning insulin dose.
--- NOTE | 2020-12-21 12:32 | NUR ---
Hospitalist made aware of issues with HTN and that IV medications were used to control HTN this AM. States he with adjust medications to be oral before discharge. MD made aware of scrotal swelling and BLE weeping edema. Expressed that pt. has poor diabetic control in regards to medications administration and diet control. states this is an ongoing problem with the pt. Discussed high phos level and low sodium. See new medication orders. Discussed the fact that pt. can not perform his own pericare due to swelling. states pt. will have home health. MD plans to discharge pt. today.
[2020-12-21] MEDS ORDERED: calcium acetate 667mg (PhosLO) capsule PO SCH (13:00)
[2020-12-21] MEDS ORDERED: PHO667C PO (13:40)
[2020-12-21] MEDS ORDERED: HYDR-4070 PO (13:40)
[2020-12-21] MEDS ORDERED: PANT40TA54 PO (13:40)
[2020-12-21] MEDS ORDERED: LACT1CAP26 PO (13:40)
[2020-12-21] MEDS ORDERED: THIA50TA10 PO (13:59)
--- NOTE | 2020-12-21 14:23 | NUR ---
PAGER ID: [phone] MESSAGE: Trevin Ferreira 346B Pt. has been taking [place] and Morphine. He is requesting some sort of pain medication prescription before discharge. Flor [phone]
[2020-12-21] MEDS ORDERED: ASCO-134 PO (14:26)
[2020-12-21] MEDS ORDERED: HYDR-3965 PO (14:26)
[2020-12-21] MEDS ORDERED: FERR325T28 PO (14:26)
[2020-12-21] MEDS: morphine 2 MG/ML inj. syringe IV PRN (14:32)
--- NOTE | 2020-12-21 15:06 | NUR ---
Pt. refused wound care pictures due to having wound care already today.
--- NOTE | 2020-12-21 15:19 | NUR ---
Discussed discharge plan, paperwork and medications extensively with pt. confirmed with both GEORGE and that PICC would remain in pt. Gathered pt. belongings. Pt. discharged.
== END 2020-12-21 15:39 | disposition home IV services (08) | DRG 720 ==
LOC: SUR 3N 12:48
PROVIDERS: ADMIT Internal Medicine; ATTEND Internal Medicine
PROC: CP1F1ZZ Planar Nuclear Medicine Imaging of Bilateral Lower Extremities using Technetium 99m (Tc-99m) (ICD-10-PCS; 2020-12-16)
PROC: 02HV33Z Insertion of Infusion Device into Superior Vena Cava, Percutaneous Approach (ICD-10-PCS; principal; 2020-12-20)
PROC: B548ZZA Ultrasonography of Superior Vena Cava, Guidance (ICD-10-PCS; 2020-12-20)
DX: A41.9 Sepsis, unspecified organism (principal); N17.9 Acute kidney failure, unspecified; M86.162 Other acute osteomyelitis, left tibia and fibula; E11.621 Type 2 diabetes mellitus with foot ulcer; E11.22 Type 2 diabetes mellitus with diabetic chronic kidney disease; E11.622 Type 2 diabetes mellitus with other skin ulcer; E11.65 Type 2 diabetes mellitus with hyperglycemia; L97.529 Non-pressure chronic ulcer of other part of left foot with unspecified severity; L97.519 Non-pressure chronic ulcer of other part of right foot with unspecified severity; E11.69 Type 2 diabetes mellitus with other specified complication; E66.9 Obesity, unspecified; B00.2 Herpesviral gingivostomatitis and pharyngotonsillitis; E78.5 Hyperlipidemia, unspecified; F10.20 Alcohol dependence, uncomplicated; G89.4 Chronic pain syndrome; I12.9 Hypertensive chronic kidney disease with stage 1 through stage 4 chronic kidney disease, or unspecified chronic kidney disease; D64.9 Anemia, unspecified; B95.61 Methicillin susceptible Staphylococcus aureus infection as the cause of diseases classified elsewhere; F32.9 Major depressive disorder, single episode, unspecified; R51.9 Headache, unspecified; L03.115 Cellulitis of right lower limb; L03.116 Cellulitis of left lower limb; E87.5 Hyperkalemia; N18.30 Chronic kidney disease, stage 3 unspecified; T38.3X6A Underdosing of insulin and oral hypoglycemic [antidiabetic] drugs, initial encounter; Y92.89 Other specified places as the place of occurrence of the external cause; Z68.41 Body mass index [BMI] 40.0-44.9, adult; Z88.1 Allergy status to other antibiotic agents; Z89.431 Acquired absence of right foot
CPT/HCPCS: 36415; 36573; 76937; 78315; 80053; 80061; 80202; 82272; 82728; 82948; 83036; 83540; 83550; 83605; 83735; 84100; 85007; 85025; 85027; 87040; 87081; 93922; 97116; 97161; 97530; 97535; A9503; G0378; J0360; J0696; J1644; J1815; J2270; J2916; J3370; J7030